=== PATIENT | male | born 1945 | race Caucasian/White ===

== ENCOUNTER 2017-06-14 00:17 | Observation (INO) | payer OTHER ==
[~2017-06-14] VITALS: Ht 175.3 cm; Wt 77.7 kg
[~2017-06-14 00:17] MED LIST: CLIN1GEL54 TOP; KETO2SHA5 EXT; MULTTAB58 PO
--- NOTE | 2017-06-14 00:43 | EMERGENCY ROOM VISIT NOTE ---
History Report prepared by Kareen: Mati Crawford Under the Supervision of: Cedric WhiteO. First contact with patient: 00:25 Chief Complaint: CHEST PAIN Stated Complaint: CHEST PAIN,PAIN UPPER LFT SIDE AND DOWN BACK History of Present Illness The patient is a 72 year old male who presents to the Emergency Room with complaints of constant chest pain beginning an hour ago. The patient states that he believes that he has heart burn because he is currently feeling better. He notes that his pain woke him up an hour and a half ago and radiated up through his shoulder and down into his arm. The patient states that his pain does not worsen when he moves his arm. He also complains of lightheadedness and left-sided neck pain. He notes that he drank water which provided relief of his chest pain. He reports that his shoulder pain and arm pain remains. The patient states that he had a stress test done over 5 years ago. He notes that he had some grilled peppers and onions tonight for dinner, but reports that these foods have not caused him chest pain in the past. The patient states that he drinks coffee every day. He notes that he occasionally feels chest pain when he eats. He reports that he has a family history of cancer but does not have a family history of heart problems. Pt denies headache, change in vision, LOC, diaphoresis, fevers, shortness of breath, nausea, vomiting, diarrhea, pain with urination, lower extremity swelling, and melena. Patient denies any history of GERD. Source of History: patient Onset: an hour ago Position: chest Timing: constant Associated Symptoms: + neck pain (left-sided), No LOC, No headache, No diaphoresis, No SOB, No nausea, No vomiting, No melena, No diarrhea, No urinary symptoms Note: The patient states that his chest pain radiates up to his shoulder and down his arm. He also complains of lightheadedness. He denies any change in vision and lower extremity swelling. Review of Systems See HPI for pertinent positives & negatives. A total of 10 systems reviewed and were otherwise negative. Past Medical & Surgical Medical Problems: (1) Ankle fracture (2) GERD (gastroesophageal reflux disease) Surgical Problems: (1) History of cholecystectomy (2) History of herniorrhaphy (3) History of tonsillectomy and adenoidectomy Family History Cancer Gallbladder disease Hypertension Social History Smoking Status: Former Smoker Marital Status: Housing Status: lives with family Occupation Status: employed Current/Historical Medications Scheduled Multiple Vitamin (Multivitamin), 1 TAB PO DAILY Pantoprazole (Protonix), 1 TAB PO DAILY Allergies Coded Allergies: Penicillins (Unverified Allergy, Unknown, as a child, [id number], [facility]) Sulfamethoxazole w/Trimethoprim (Verified Allergy, Unknown, face breaks outin boils, 03/10/16) Tetracycline (Unverified Allergy, Unknown, RASH, 03/10/16) Oxycodone (Verified Adverse Reaction, Unknown, n/v, 03/10/16) Uncoded Allergies: dairy (Adverse Reaction, Unknown, migraines, 12/14/13) perfumes (Adverse Reaction, Unknown, migraines, 12/14/13) Physical Exam Vital Signs Date Time Temp Pulse Resp B/P (MAP) Pulse Ox O2 Delivery O2 Flow Rate FiO2 06/14/17 06:14 74 20 134/93 98 Room Air 06/14/17 05:27 66 115/77 72 142/80 73 134/93 06/14/17 05:13 95 Room Air 06/14/17 05:02 70 06/14/17 04:53 78 20 131/83 98 Room Air 06/14/17 03:23 76 20 131/89 98 Room Air 06/14/17 02:48 73 21 139/87 98 Room Air 06/14/17 01:48 66 20 118/83 97 Room Air 06/14/17 01:04 65 20 115/74 97 Room Air 06/14/17 00:40 68 06/14/17 00:30 94 Room Air 06/14/17 00:19 36.6 74 18 133/90 94 Room Air Physical Exam GENERAL: alert, well appearing, well nourished, no distress, non-toxic EYE EXAM: normal conjunctiva, PERRL and EOM's grossly intact OROPHARYNX: no exudate, no erythema, lips, buccal mucosa, and tongue normal and mucous membranes are moist NECK: supple, no nuchal rigidity, no adenopathy, non-tender LUNGS: Clear to auscultation. Normal chest wall mechanics, no wheezes/rhonchi/ rales HEART: no murmurs, S1 normal and S2 normal ABDOMEN: abdomen soft, non-tender, normo-active bowel sounds, no masses, no rebound or guarding. BACK: Back is symmetrical on inspection and there is no deformity, no midline tenderness, no CVA tenderness. CHEST: No reproducible pain to palpation of chest wall. SKIN: no rashes and no bruising UPPER EXTREMITIES: upper extremities are grossly normal. Normal pulses and full range of motion. LOWER EXTREMITIES: No pitting edema. Normal pulses and full range of motion. NEURO EXAM: Normal sensorium, cranial nerves II-XII grossly intact, normal speech, no gross weakness of arms, no gross weakness of legs. Medical Decision & Procedures ER Provider Diagnostic Interpretation: Radiology results have been interpreted by the radiologist and reviewed by me. CTA CHEST: No consolidation or pleural effusion. No pulmonary embolism. Normal heart size without pericardial effusion. Radiologist: Yissel Serrato M.D. CHEST X-RAY: No cardiomegaly. No effusion. No wide mediastinum. No focal infiltrate. Laboratory Results 06/14/17 00:50 Red Blood Count 4.75, Mean Corpuscular Volume 94.9, Mean Corpuscular Hemoglobin 30.7, Mean Corpuscular Hemoglobin Concent 32.4, Mean Platelet Volume 9.7, Neutrophils (%) (Auto) 47.9, Lymphocytes (%) (Auto) 40.6, Monocytes (%) (Auto) 8.0, Eosinophils (%) (Auto) 3.0, Basophils (%) (Auto) 0.2, Neutrophils # (Auto) 2.74, Lymphocytes # (Auto) 2.32, Monocytes # (Auto) 0.46, Eosinophils # (Auto) 0.17, Basophils # (Auto) 0.01 06/14/17 00:50 Test 06/14/17 00:50 06/14/17 04:38 White Blood Count 5.72 K/uL (4.8-10.8) Red Blood Count 4.75 M/uL (4.7-6.1) Hemoglobin 14.6 g/dL (14.0-18.0) Hematocrit 45.1 % (42-52) Mean Corpuscular Volume 94.9 fL (80-100) Mean Corpuscular Hemoglobin 30.7 pg (25-34) Mean Corpuscular Hemoglobin Concent 32.4 g/dl (32-36) Platelet Count 283 K/uL (130-400) Mean Platelet Volume 9.7 fL (7.4-10.4) Neutrophils (%) (Auto) 47.9 % Lymphocytes (%) (Auto) 40.6 % Monocytes (%) (Auto) 8.0 % Eosinophils (%) (Auto) 3.0 % Basophils (%) (Auto) 0.2 % Neutrophils # (Auto) 2.74 K/uL (1.4-6.5) Lymphocytes # (Auto) 2.32 K/uL (1.2-3.4) Monocytes # (Auto) 0.46 K/uL (0.11-0.59) Eosinophils # (Auto) 0.17 K/uL (0-0.5) Basophils # (Auto) 0.01 K/uL (0-0.2) RDW Standard Deviation 44.9 fL (36.4-46.3) RDW Coefficient of Variation 13.0 % (11.5-14.5) Immature Granulocyte % (Auto) 0.3 % Immature Granulocyte # (Auto) 0.02 K/uL (0.00-0.02) Prothrombin Time 11.4 SECONDS (9.0-12.0) Prothromb Time International Ratio 1.1 (0.9-1.1) D-Dimer 190 ug/L FEU (0-500) Anion Gap 5.0 mmol/L (3-11) Est Creatinine Clear Calc Drug Dose 77.4 ml/min Estimated GFR () 101.5 Estimated GFR (Non- 87.6 BUN/Creatinine Ratio 15.2 (10-20) Calcium Level 8.4 mg/dl (8.5-10.1) Magnesium Level 2.2 mg/dl (1.8-2.4) Total Bilirubin 0.5 mg/dl (0.2-1) Aspartate Amino Transf (AST/SGOT) 11 U/L (15-37) Alanine Aminotransferase (ALT/SGPT) 19 U/L (12-78) Alkaline Phosphatase 57 U/L (45-117) Total Protein 6.2 gm/dl (6.4-8.2) Albumin 3.7 gm/dl (3.4-5.0) Globulin 2.5 gm/dl (2.5-4.0) Albumin/Globulin Ratio 1.5 (0.9-2) Troponin I < 0.015 ng/ml (0-0.045) Triglycerides Level 45 mg/dl (0-150) Cholesterol Level 164 mg/dl (0-200) HDL Cholesterol 58 mg/dl LDL Cholesterol, Calculated 97 mg/dl VLDL Cholesterol, Calculated 9 mg/dl Cholesterol/HDL Ratio 2.8 Laboratory results per my review. Medications Administered Medications (Trade) Dose Ordered Sig/Ellen Route Start Time Stop Time Status Last Admin Dose Admin Famotidine (Pepcid 20mg Iv Push) 20 mg ONE STAT IV 06/14/17 00:44 06/14/17 00:47 DC 06/14/17 01:02 20 MG Al Hydroxide/Mg Hydroxide (Maalox Susp) 15 ml NOW STAT PO 06/14/17 00:44 06/14/17 00:47 DC 06/14/17 01:02 15 ML Aspirin (Ecotrin Tab) 325 mg NOW STAT PO 06/14/17 05:56 06/14/17 05:57 DC 06/14/17 06:26 325 MG ECG Per My Interpretation Indication: chest pain Rate (beats per minute): 70 Rhythm: sinus rhythm Findings: no acute ischemic change, no ectopy, other (Left axis, normal intervals) Change: EKG #2: Sinus 65. Left Jemison. Normal intervals. No acute ischemic change. ED Course 0027: The patient was evaluated in room B2. A complete history and physical exam was performed. 0044: Maalox Susp 15ml PO, Famotidine 20mg IV 0217: I reevaluated and updated the patient. He feels better. I updated him on his lab results so far. The patient will get a repeat trop. 0250: The patient had another episode of chest pain that radiated a little toward his back. He rates his current pain as a /10. 0430: I rechecked the patient. He has no current chest pain and is waiting on a repeat trop. 0552: I reevaluated and updated the patient. He is still in pain. 0556: Aspirin 325mg PO 0600: Upon reevaluation, the patient is stable. I discussed the findings and the treatment plan with the patient. He expresses agreement and understanding. I spoke with Dr. Nicholson of the [facility]. The patient will be evaluated for further management. 0615: I rechecked the patient again. He is willing to be admitted. Medical Decision Differential diagnosis: Etiologies such as cardiac ischemia, aortic dissection, pulmonary embolism, pneumonia, pneumothorax, musculoskeletal, infections, pericarditis, myocarditis , esophageal rupture, gastrointestinal, as well as others were entertained. Heart score 3 Patient well-appearing here and symptoms had resolved prior to my interview and evaluation at bedside. Patient low risk for ACS, and initial labs and imaging unremarkable. Patient had repeat episode of pain in the back, was sent for CTA chest as a precaution, this was also reassuring. Patient was able to ambulate without any recurrent pain and no hypoxia. Patient then had a repeat episode of chest pain in the left arm, and I discussed with him admission for additional evaluation and trending of troponins despite 2 negative troponins in the emergency room. I do not suspect dissection or other vascular etiology, no evidence of PE, infectious etiology, pericardial effusion. Patient was stable vital signs here, doubt hypertensive urgency/emergency. Discussed with them possible GERD or musculoskeletal component, however given age and no prior history of recent cardiac evaluation, additional evaluation and possible cardiology evaluation. Patient verbalized understanding and after several bedside discussions was agreeable with plan. Medication Reconcilliation Current Medication List: was personally reviewed by me Blood Pressure Screening Patient's blood pressure: Elevated blood pressure Blood pressure disposition: Elevated BP felt to be situational Consults Time Called: 0557 Consulting Physician: Dr. Nicholson - Jordan Simon Returned Call: 0600 I reviewed the patient's case with Jordan Elam. He will evaluate the patient for further management. Impression Primary Impression: Chest pain Additional Impression: Light-headed feeling Scribe Attestation The scribe's documentation has been prepared under my direction and personally reviewed by me in its entirety. I confirm that the note above accurately reflects all work, treatment, procedures, and medical decision making performed by me. Departure Information Dispostion Being Evaluated By Hospitalist Prescriptions Pantoprazole (PROTONIX) 40 Mg Tab 1 TAB PO DAILY for 30 Days, #30 TAB 0 Refills Prov: David Mojica M.D. 06/14/17 Referrals Bridger Luna M.D. (PCP) Patient Instructions My [facility] Problem Qualifiers Primary Impression: Chest pain Chest pain type: unspecified Qualified Codes: R07.9 - Chest pain, unspecified
[2017-06-14] MEDS ORDERED: ALUMINUM/MAGNESIUM SUSP 30 ML UDC PO STA (00:44)
[2017-06-14] MEDS ORDERED: FAMOTIDINE 20MG/5ML IV PUSH IV STA (00:44)
[2017-06-14 01:02] LABS: BASO % 0.2 %; BASO ABS # 0.01 K/uL (0-0.2); EOS ABS # 0.17 K/uL (0-0.5); HEMATOCRIT 45.1 % (42-52); HEMOGLOBIN 14.6 g/dL (14.0-18.0); IG# 0.02 K/uL (0.00-0.02); LYMPH % 40.6 %; LYMPH ABS # 2.32 K/uL (1.2-3.4); MEAN CELL VOLUME 94.9 fL (80-100); MEAN CORPUSCULAR HEMOGLOBIN 30.7 pg (25-34); MEAN CORPUSCULAR HGB CONC 32.4 g/dl (32-36); MEAN PLATELET VOLUME 9.7 fL (7.4-10.4); MONO ABS # 0.46 K/uL (0.11-0.59); NEUT % 47.9 %; NEUT ABS # 2.74 K/uL (1.4-6.5); PLATELET COUNT 283 K/uL (130-400); RED CELL DISTRIBUTION WIDTH SD 44.9 fL (36.4-46.3); WHITE BLOOD COUNT 5.72 K/uL (4.8-10.8)
[2017-06-14 01:13] LABS: INR 1.1 (0.9-1.1)
[2017-06-14 01:19] LABS: ALBUMIN 3.7 gm/dl (3.4-5.0); ALT/SGPT 19 U/L (12-78); AST/SGOT 11 U/L (15-37); BLOOD UREA NITROGEN 12 mg/dl (7-18); CALCIUM 8.4 mg/dl (8.5-10.1); CARBON DIOXIDE 26 mmol/L (21-32); CREATININE 0.81 mg/dl (0.60-1.40); GLUCOSE 96 mg/dl (70-99); POTASSIUM 3.9 mmol/L (3.5-5.1); SODIUM 140 mmol/L (136-145)
[2017-06-14 01:24] LABS: ALKALINE PHOSPHATASE 57 U/L (45-117); TOTAL PROTEIN 6.2 gm/dl (6.4-8.2)
[2017-06-14] MEDS ORDERED: OPTIRAY 320 IV PRN (03:15)
[2017-06-14] MEDS ORDERED: ASPIRIN 325 MG ECTAB PO STA (05:56)
--- NOTE | 2017-06-14 06:36 | DIAGNOSTIC IMAGING REPORT ---
(CHEST FOR PE) ANGIO WITH CT DOSE: 423.33 mGy.cm HISTORY: Chest pain dyspnea TECHNIQUE: Multiaxial CT images of the chest were performed following the intravenous administration of contrast to evaluate the pulmonary arteries. Maximal intensity projection images were also obtained. A dose lowering technique was utilized adhering to the principles of ALARA. COMPARISON STUDY: None. FINDINGS: There is a normal caliber thoracic aorta with no evidence for dissection. There is no evidence for pulmonary embolus. No pleural effusions. No pneumothorax. The liver and spleen are unremarkable. No mediastinal or hilar lymphadenopathy. The central airways are patent. The lungs are clear. IMPRESSION: No evidence for pulmonary embolus. The above report was generated using voice recognition software. It may contain grammatical, syntax or spelling errors. Electronically signed by: Harman Diaz M.D. 06/14/2017 6:35 AM Dictated Date/Time: 06/14/2017 6:33 AM
[2017-06-14] MEDS ORDERED: ONDANSETRON INJ 2 MG/ML 2 ML VIAL IV PRN (07:00)
[2017-06-14] MEDS ORDERED: ACETAMINOPHEN 325 MG TAB PO PRN (07:00)
[2017-06-14] MEDS ORDERED: POLYETHYLENE (MIRALAX) 17 GM PACK PO PRN (07:00)
--- NOTE | 2017-06-14 07:18 | History and Physical ---
History & Physical Date & Time of Service: Jun 14, 2017 at 07:00 Chief Complaint: Chest Pain,Pain Upper Lft Side And Down Back Primary Care Physician: Bridger Luna M.D. History of Present Illness Source: patient, family Patient is a 72 yo male who presents to the hospital for evaluation of chest discomfort that woke him from sleep last night. The patient states he woke up with pain in the back of his left shoulder/neck, and chest discomfort. He then states the pain began radiating down his left arm and into his left neck, and thus came to the ER. He reports associated lightheadedness/dizziness but denies any SOB, nausea, or palpitations. He reports difficulty explaining the pain, and states he was not sure if it was from his vertebrae, heartburn, or cardiac. He reports having slight improvement with drinking water. He also mentions having some tenderness to palpation on the left chest wall between ribs. He had improvement of symptoms initially in the ER, but then began having a recurrence of the discomfort in his chest and shoulder. Past Medical/Surgical History Medical Problems: (1) GERD (gastroesophageal reflux disease) Status: Chronic Surgical Problems: (1) History of cholecystectomy Status: Resolved (2) History of herniorrhaphy Status: Resolved (3) History of tonsillectomy and adenoidectomy Status: Resolved Family History Cancer Gallbladder disease Hypertension Social History Smoking Status: Former Smoker Marital Status: Housing status: lives with family Occupational Status: employed Multi-Drug Resistant Organisms History of MDRO: No Allergies Coded Allergies: Penicillins (Unverified Allergy, Unknown, as a child, Dr Jeni REED with [facility] [id number] adm, 03/10/16) Sulfamethoxazole w/Trimethoprim (Verified Allergy, Unknown, face breaks outin boils, 03/10/16) Tetracycline (Unverified Allergy, Unknown, RASH, 03/10/16) Oxycodone (Verified Adverse Reaction, Unknown, n/v, 03/10/16) Uncoded Allergies: dairy (Adverse Reaction, Unknown, migraines, 12/14/13) perfumes (Adverse Reaction, Unknown, migraines, 12/14/13) Home Medications Scheduled Multiple Vitamin (Multivitamin), 1 TAB PO DAILY Review of Systems Constitutional: No fever, No chills, No sweats, No weight loss, No weakness Eyes: No eye pain, No redness, No diplopia ENT: No nasal symptoms, No sore throat, No trouble swallowing Respiratory: No cough, No sputum, No wheezing, No shortness of breath Cardiovascular: + chest pain, No edema, No claudication, No palpitations Abdomen: No pain, No nausea, No vomiting, No diarrhea, No constipation Musculoskeletal: No joint pain, No muscle pain, No swelling Genitourinary - Male: No hematuria, No dysuria, No urinary frequency, No urinary urgency Neurologic: No paralysis, No weakness, No vertigo, No balance problems Psychiatric: No depression symptoms, No anxiety, No insomnia Endocrine: No fatigue, No excessive thirst, No excessive urination Hematologic / Lymphatic: No abnormal bleeding/bruising, No clotting problems, No swollen lymph nodes Integumentary: No rash, No itch, No new/changing skin lesions Physical Exam Vital Signs Date Time Temp Pulse Resp B/P (MAP) Pulse Ox O2 Delivery O2 Flow Rate FiO2 06/14/17 06:14 74 20 134/93 98 Room Air 06/14/17 05:27 66 115/77 72 142/80 73 134/93 06/14/17 05:13 95 Room Air 06/14/17 05:02 70 06/14/17 04:53 78 20 131/83 98 Room Air 06/14/17 03:23 76 20 131/89 98 Room Air 06/14/17 02:48 73 21 139/87 98 Room Air 06/14/17 01:48 66 20 118/83 97 Room Air 06/14/17 01:04 65 20 115/74 97 Room Air 06/14/17 00:40 68 06/14/17 00:30 94 Room Air 06/14/17 00:19 36.6 74 18 133/90 94 Room Air General Appearance: WD/WN, no apparent distress Head: normocephalic, atraumatic Eyes: PERRL, EOMI, sclerae normal ENT: hearing grossly normal Neck: supple, no adenopathy, no JVD, no carotid bruits, trachea midline Respiratory/Chest: chest non-tender, lungs clear, normal breath sounds, no respiratory distress, no accessory muscle use Cardiovascular: regular rate, rhythm, no edema, no gallop, no JVD, no murmur Abdomen/GI: normal bowel sounds, non tender, soft, no organomegaly Back: no CVA tenderness, + paravertebral tenderness (lumbar spine) Extremities/Musculoskelatal: no calf tenderness, normal capillary refill, no pedal edema Neurologic/Psych: no motor/sensory deficits, alert, normal mood/affect, oriented x 3 Skin: normal color, warm/dry, no rash Diagnostics Laboratory Results Results Past 24 Hours Test 06/14/17 00:50 06/14/17 04:38 06/14/17 06:53 Range/Units White Blood Count 5.72 4.8-10.8 K/uL Red Blood Count 4.75 4.7-6.1 M/uL Hemoglobin 14.6 14.0-18.0 g/dL Hematocrit 45.1 42-52 % Mean Corpuscular Volume 94.9 80-100 fL Mean Corpuscular Hemoglobin 30.7 25-34 pg Mean Corpuscular Hemoglobin Concent 32.4 32-36 g/dl Platelet Count 283 130-400 K/uL Mean Platelet Volume 9.7 7.4-10.4 fL Neutrophils (%) (Auto) 47.9 % Lymphocytes (%) (Auto) 40.6 % Monocytes (%) (Auto) 8.0 % Eosinophils (%) (Auto) 3.0 % Basophils (%) (Auto) 0.2 % Neutrophils # (Auto) 2.74 1.4-6.5 K/uL Lymphocytes # (Auto) 2.32 1.2-3.4 K/uL Monocytes # (Auto) 0.46 0.11-0.59 K/uL Eosinophils # (Auto) 0.17 0-0.5 K/uL Basophils # (Auto) 0.01 0-0.2 K/uL RDW Standard Deviation 44.9 36.4-46.3 fL RDW Coefficient of Variation 13.0 11.5-14.5 % Immature Granulocyte % (Auto) 0.3 % Immature Granulocyte # (Auto) 0.02 0.00-0.02 K/uL Prothrombin Time 11.4 9.0-12.0 SECONDS Prothromb Time International Ratio 1.1 0.9-1.1 D-Dimer 190 0-500 ug/L FEU Sodium Level 140 136-145 mmol/L Potassium Level 3.9 3.5-5.1 mmol/L Chloride Level 109 98-107 mmol/L Carbon Dioxide Level 26 21-32 mmol/L Anion Gap 5.0 3-11 mmol/L Blood Urea Nitrogen 12 7-18 mg/dl Creatinine 0.81 0.60-1.40 mg/dl Est Creatinine Clear Calc Drug Dose 77.4 ml/min Estimated GFR () 101.5 Estimated GFR (Non- 87.6 BUN/Creatinine Ratio 15.2 10-20 Random Glucose 96 70-99 mg/dl Calcium Level 8.4 8.5-10.1 mg/dl Magnesium Level 2.2 1.8-2.4 mg/dl Total Bilirubin 0.5 0.2-1 mg/dl Aspartate Amino Transf (AST/SGOT) 11 15-37 U/L Alanine Aminotransferase (ALT/SGPT) 19 12-78 U/L Alkaline Phosphatase 57 45-117 U/L Troponin I < 0.015 < 0.015 0-0.045 ng/ml Total Protein 6.2 6.4-8.2 gm/dl Albumin 3.7 3.4-5.0 gm/dl Globulin 2.5 2.5-4.0 gm/dl Albumin/Globulin Ratio 1.5 0.9-2 Impression Assessment and Plan CHEST PAIN: -admit to rule out ACS -negative troponins x2, 3rd troponin ordered -CTA chest negative for PE or dissection -EKG NSR -Consult Cardiology, have paged to discuss the patient, will place an order for a stress echo for now and can be cancelled or modified as needed -patient does not have a history of GERD but reports heartburn symptoms more recently. -check lipid panel -low dose ASA given CHRONIC LOW BACK PAIN: -was told he problem is not amenable to surgery -takes PRN ibuprofen or tylenol on occasion -was given PT without much effect Level of Care Telemetry Resuscitation Status FULL RESUSCITATION VTE Prophylaxis VTE Risk Assessment Done? Y/N: Yes Risk Level: Moderate Given or contraindicated: Enoxaparin (Lovenox)SQ
--- NOTE | 2017-06-14 07:33 | DIAGNOSTIC IMAGING REPORT ---
SINGLE VIEW CHEST CLINICAL HISTORY: Atypical chest pain. FINDINGS: An AP, portable, upright chest radiograph is compared to study dated 03/29/2009. The examination is degraded by portable technique and patient rotation. The heart is enlarged and there is atherosclerotic calcification of the thoracic aorta. The pulmonary vasculature is noncongested. Chronic interstitial thickening is similar to previous. There is bibasilar atelectasis. The lungs and pleural spaces are otherwise clear. No pneumothorax is seen. The skeletal structures are osteopenic. The bony thorax is grossly intact. IMPRESSION: Cardiomegaly with no acute cardiopulmonary abnormality. Electronically signed by: Kushal Fernandes M.D. 06/14/2017 7:32 AM Dictated Date/Time: 06/14/2017 7:31 AM
[2017-06-14 07:53] VITALS: BP 138/88; PULSE 73; TEMP 36.9; O2SAT 97; Ht 175.3 cm; Wt 77.7 kg
[2017-06-14] MEDS ORDERED: IV FLUIDS COMPLETED PRN (08:15)
[2017-06-14] MEDS ORDERED: ENOXAPARIN 30 MG/0.3 ML SYR SC SCH (09:00)
--- NOTE | 2017-06-14 10:48 | Progress Note ---
Progress Note Date of Service Jun 14, 2017. Progress Note Stress echocardiogram: nonischemic. ok to d/c to home from cardiac standpoint.
--- NOTE | 2017-06-14 11:22 | CARDIOLOGY CONSULTATION ---
DATE OF CONSULTATION: 06/14/2017 INPATIENT CONSULTATION CONSULTATION REQUESTED BY: Dr. Nicholson. REASON FOR CONSULTATION: Chest pain. HISTORY OF PRESENT ILLNESS: Mr. Dillon is a very pleasant 72-year-old gentleman who presented to Emergency Department early in the a.m. of 06/14/2017 with a complaint of chest pain. The patient states he went to bed last night in his normal state of health, but then woke up in the middle the night with pain in the back of his left shoulder that seemed to radiate up into his chest. He described it as a muscle ache sensation that was dull and achy with moments of sharp and stabbing pain. He denied any associated shortness of breath, diaphoresis, nausea, palpitations, lightheadedness, dizziness, or syncope. He states that the pain resolved while he was in the waiting room the Emergency Department. In the ER, his initial evaluation was unremarkable and he was admitted to telemetry. Otherwise, he states the pain continues to wax and wane. He does note that he does carry 40 pounds of coal in a bucket every day to heat his house. He also had a meal of onions and peppers yesterday afternoon. PAST SURGICAL HISTORY: 1. Tonsillectomy. 2. Hernia repair. 3. Laparoscopic cholecystectomy. 4. Colonoscopy. MEDICAL ILLNESSES: 1. GERD. 2. Migraines. 3. Benign prostatic hypertrophy. 4. Benign neoplasm of the colon. FAMILY HISTORY: Noncontributory. SOCIAL HISTORY: The patient is a former smoker, quit 16 years ago. Denies any alcohol or recreational drug use. He is and lives at home with his . He is currently employed as a water treatment plant. REVIEW OF SYSTEMS: As per HPI, all other review of systems reviewed and negative at this time. ALLERGIES: 1. PENICILLINS. 2. BACTRIM. 3. TETRACYCLINE. 4. OXYCODONE. MEDICATIONS AN OUTPATIENT: Denies. PHYSICAL EXAMINATION: VITALS: Temperature 36.9, pulse 73, respiratory rate 12, blood pressure 138/88. GENERAL: Awake, alert, oriented x3 in no acute distress. HEENT: Normocephalic, atraumatic. Pupils equal, round and react to light and accommodation. Extraocular muscles intact. Anicteric sclerae. Moist mucous membranes. NECK: No JVD, no bruit. CARDIOVASCULAR: Regular. Positive S4. Normal S1 and S2. No S3. No murmurs or rubs. PULMONARY: Clear to auscultation bilaterally. No rales, rhonchi, or wheezing. ABDOMEN: Bowel sounds x4, soft. No rebound, guarding, tenderness. No organomegaly. EXTREMITIES: No clubbing, cyanosis or edema. +2 pedal pulses bilaterally. SKIN: Warm and dry. TEST RESULTS: A 12-lead EKG performed in the Emergency Department independently reviewed at this time shows normal sinus rhythm with left axis deviation. No signs of active ischemia. LABORATORY STUDIES OF SIGNIFICANCE: Troponin negative x2. Exercise stress echocardiogram was nonischemic, no arrhythmias, normal heart rate and blood pressure response to exercise, above average exercise tolerance. IMPRESSION: Chest pain, noncardiac. RECOMMENDATIONS: It was my pleasure to see Mr. Dillon in consultation today. The patient was counseled given the fact that his ischemic workup is negative, I do not see any cardiac component to his chest pain and believe it is most likely either a musculoskeletal or acid reflux or possibly a combination of the two. So it is okay to discharge the patient to home from a cardiac standpoint, I recommend followup with his primary care physician. No medications will be added.
[2017-06-14 12:39] VITALS: BP 145/75; PULSE 76; TEMP 36.7; O2SAT 98
--- NOTE | 2017-06-14 13:40 | Progress Note ---
Internal Med Progress Note Date of Service: Jun 14, 2017. Provider Documentation: SUBJECTIVE: Patient performed well after stress test. Denies chest pain or shortness of breath OBJECTIVE: General Appearance: no apparent distress Head: normocephalic, atraumatic Eyes: EOMI, sclerae normal ENT: hearing grossly normal Neck: supple, no adenopathy, no JVD, no carotid bruits, trachea midline Respiratory/Chest: chest non-tender, lungs clear, normal breath sounds, no respiratory distress, no accessory muscle use Cardiovascular: regular rate, rhythm, no edema Abdomen/GI: normal bowel sounds, non tender, soft, no organomegaly Extremities/Musculoskelatal: nontender Neurologic/Psych: no motor/sensory deficits, alert, normal mood/affect, oriented x 3 Skin: normal color, warm/dry, no rash ASSESSMENT & PLAN: CTA: No evidence for pulmonary embolus Patient was evaluated by cardiology Exercise stress echocardiogram was nonischemic, no arrhythmias, normal heart rate and blood pressure response to exercise, above average exercise tolerance. IMPRESSION: Chest pain, noncardiac. Patient may have been experience musculoskeletal pain or gastric reflux Patient to be discharged with prescription for pantoprazole if having gastric reflux Patient to be discharged with follow up to Dr. Luna [address] [facility], [place] [address] Vital Signs: Date Time Temp Pulse Resp B/P (MAP) Pulse Ox O2 Delivery O2 Flow Rate FiO2 06/14/17 12:39 36.7 76 18 145/75 (98) 98 Room Air 06/14/17 12:00 Room Air 06/14/17 07:53 36.9 73 18 138/88 97 Room Air 06/14/17 07:21 78 16 125/85 97 Room Air 06/14/17 06:14 74 20 134/93 98 Room Air 06/14/17 05:27 66 115/77 72 142/80 73 134/93 06/14/17 05:13 95 Room Air 06/14/17 05:02 70 06/14/17 04:53 78 20 131/83 98 Room Air 06/14/17 03:23 76 20 131/89 98 Room Air 06/14/17 02:48 73 21 139/87 98 Room Air 06/14/17 01:48 66 20 118/83 97 Room Air 06/14/17 01:04 65 20 115/74 97 Room Air 06/14/17 00:40 68 06/14/17 00:30 94 Room Air 06/14/17 00:19 36.6 74 18 133/90 94 Room Air Lab Results: Results Past 24 Hours Test 06/14/17 00:50 06/14/17 04:38 06/14/17 12:53 Range/Units White Blood Count 5.72 4.8-10.8 K/uL Red Blood Count 4.75 4.7-6.1 M/uL Hemoglobin 14.6 14.0-18.0 g/dL Hematocrit 45.1 42-52 % Mean Corpuscular Volume 94.9 80-100 fL Mean Corpuscular Hemoglobin 30.7 25-34 pg Mean Corpuscular Hemoglobin Concent 32.4 32-36 g/dl Platelet Count 283 130-400 K/uL Mean Platelet Volume 9.7 7.4-10.4 fL Neutrophils (%) (Auto) 47.9 % Lymphocytes (%) (Auto) 40.6 % Monocytes (%) (Auto) 8.0 % Eosinophils (%) (Auto) 3.0 % Basophils (%) (Auto) 0.2 % Neutrophils # (Auto) 2.74 1.4-6.5 K/uL Lymphocytes # (Auto) 2.32 1.2-3.4 K/uL Monocytes # (Auto) 0.46 0.11-0.59 K/uL Eosinophils # (Auto) 0.17 0-0.5 K/uL Basophils # (Auto) 0.01 0-0.2 K/uL RDW Standard Deviation 44.9 36.4-46.3 fL RDW Coefficient of Variation 13.0 11.5-14.5 % Immature Granulocyte % (Auto) 0.3 % Immature Granulocyte # (Auto) 0.02 0.00-0.02 K/uL Prothrombin Time 11.4 9.0-12.0 SECONDS Prothromb Time International Ratio 1.1 0.9-1.1 D-Dimer 190 0-500 ug/L FEU Sodium Level 140 136-145 mmol/L Potassium Level 3.9 3.5-5.1 mmol/L Chloride Level 109 98-107 mmol/L Carbon Dioxide Level 26 21-32 mmol/L Anion Gap 5.0 3-11 mmol/L Blood Urea Nitrogen 12 7-18 mg/dl Creatinine 0.81 0.60-1.40 mg/dl Est Creatinine Clear Calc Drug Dose 77.4 ml/min Estimated GFR () 101.5 Estimated GFR (Non- 87.6 BUN/Creatinine Ratio 15.2 10-20 Random Glucose 96 70-99 mg/dl Calcium Level 8.4 8.5-10.1 mg/dl Magnesium Level 2.2 1.8-2.4 mg/dl Total Bilirubin 0.5 0.2-1 mg/dl Aspartate Amino Transf (AST/SGOT) 11 15-37 U/L Alanine Aminotransferase (ALT/SGPT) 19 12-78 U/L Alkaline Phosphatase 57 45-117 U/L Troponin I < 0.015 < 0.015 0-0.045 ng/ml Total Protein 6.2 6.4-8.2 gm/dl Albumin 3.7 3.4-5.0 gm/dl Globulin 2.5 2.5-4.0 gm/dl Albumin/Globulin Ratio 1.5 0.9-2 Triglycerides Level 45 0-150 mg/dl Cholesterol Level 164 0-200 mg/dl HDL Cholesterol 58 mg/dl LDL Cholesterol, Calculated 97 mg/dl VLDL Cholesterol, Calculated 9 mg/dl Cholesterol/HDL Ratio 2.8
[2017-06-14] MEDS ORDERED: PANT1TAB3 PO (13:44)
--- NOTE | 2017-06-14 13:47 | Discharge Instructions ---
Discharge Instructions Date of Service Jun 14, 2017. Admission Reason for Admission: Chest Pain Discharge Discharge Diagnosis / Problem: non cardiac chest pain Discharge Goals Goal(s): Improve function Activity Recommendations Activity Limitations: per Instructions/Follow-up section Shower/Bathe: no limitations . Instructions / Follow-Up Instructions / Follow-Up CTA: No evidence for pulmonary embolus Patient was evaluated by cardiology Exercise stress echocardiogram was nonischemic, no arrhythmias, normal heart rate and blood pressure response to exercise, above average exercise tolerance. IMPRESSION: Chest pain, noncardiac. Patient may have been experience musculoskeletal pain or gastric reflux Patient to be discharged with prescription for pantoprazole if having gastric reflux Patient to be discharged with follow up to Dr. Luna [address] [facility], [place] [address] Current Hospital Diet Patient's current hospital diet: AHA Diet (Heart Healthy) Discharge Diet Recommended Diet: AHA Diet (Heart Healthy) Pending Studies Studies pending at discharge: no Laboratory Results 06/14/17 00:50 Red Blood Count 4.75, Mean Corpuscular Volume 94.9, Mean Corpuscular Hemoglobin 30.7, Mean Corpuscular Hemoglobin Concent 32.4, Mean Platelet Volume 9.7, Neutrophils (%) (Auto) 47.9, Lymphocytes (%) (Auto) 40.6, Monocytes (%) (Auto) 8.0, Eosinophils (%) (Auto) 3.0, Basophils (%) (Auto) 0.2, Neutrophils # (Auto) 2.74, Lymphocytes # (Auto) 2.32, Monocytes # (Auto) 0.46, Eosinophils # (Auto) 0.17, Basophils # (Auto) 0.01 06/14/17 00:50 Test 06/14/17 00:50 06/14/17 04:38 06/14/17 12:53 White Blood Count 5.72 K/uL (4.8-10.8) Red Blood Count 4.75 M/uL (4.7-6.1) Hemoglobin 14.6 g/dL (14.0-18.0) Hematocrit 45.1 % (42-52) Mean Corpuscular Volume 94.9 fL (80-100) Mean Corpuscular Hemoglobin 30.7 pg (25-34) Mean Corpuscular Hemoglobin Concent 32.4 g/dl (32-36) Platelet Count 283 K/uL (130-400) Mean Platelet Volume 9.7 fL (7.4-10.4) Neutrophils (%) (Auto) 47.9 % Lymphocytes (%) (Auto) 40.6 % Monocytes (%) (Auto) 8.0 % Eosinophils (%) (Auto) 3.0 % Basophils (%) (Auto) 0.2 % Neutrophils # (Auto) 2.74 K/uL (1.4-6.5) Lymphocytes # (Auto) 2.32 K/uL (1.2-3.4) Monocytes # (Auto) 0.46 K/uL (0.11-0.59) Eosinophils # (Auto) 0.17 K/uL (0-0.5) Basophils # (Auto) 0.01 K/uL (0-0.2) RDW Standard Deviation 44.9 fL (36.4-46.3) RDW Coefficient of Variation 13.0 % (11.5-14.5) Immature Granulocyte % (Auto) 0.3 % Immature Granulocyte # (Auto) 0.02 K/uL (0.00-0.02) Prothrombin Time 11.4 SECONDS (9.0-12.0) Prothromb Time International Ratio 1.1 (0.9-1.1) D-Dimer 190 ug/L FEU (0-500) Anion Gap 5.0 mmol/L (3-11) Est Creatinine Clear Calc Drug Dose 77.4 ml/min Estimated GFR () 101.5 Estimated GFR (Non- 87.6 BUN/Creatinine Ratio 15.2 (10-20) Calcium Level 8.4 mg/dl (8.5-10.1) Magnesium Level 2.2 mg/dl (1.8-2.4) Total Bilirubin 0.5 mg/dl (0.2-1) Aspartate Amino Transf (AST/SGOT) 11 U/L (15-37) Alanine Aminotransferase (ALT/SGPT) 19 U/L (12-78) Alkaline Phosphatase 57 U/L (45-117) Total Protein 6.2 gm/dl (6.4-8.2) Albumin 3.7 gm/dl (3.4-5.0) Globulin 2.5 gm/dl (2.5-4.0) Albumin/Globulin Ratio 1.5 (0.9-2) Triglycerides Level 45 mg/dl (0-150) Cholesterol Level 164 mg/dl (0-200) HDL Cholesterol 58 mg/dl LDL Cholesterol, Calculated 97 mg/dl VLDL Cholesterol, Calculated 9 mg/dl Cholesterol/HDL Ratio 2.8 Lipid Panel Test 06/14/17 04:38 Range/Units Triglycerides Level 45 0-150 mg/dl Cholesterol Level 164 0-200 mg/dl HDL Cholesterol 58 mg/dl Cholesterol/HDL Ratio 2.8 LDL Cholesterol, Calculated 97 mg/dl Medical Emergencies . Who to Call and When: Medical Emergencies: If at any time you feel your situation is an emergency, please call 911 immediately. . Non-Emergent Contact Non-Emergency issues call your: Primary Care Provider Call Non-Emergent contact if: you have any medication questions . . "Provider Documentation" section prepared by David Mojica. . VTE Core Measure Inpt VTE Proph given/why not?: Enoxaparin (Lovenox)SQ
[2017-06-14 13:49] VITALS: BP 145/75; PULSE 76; TEMP 36.7; O2SAT 98
[2017-06-15] MEDS ORDERED: ASPIRIN 81 MG ECTAB PO SCH (09:00)
--- NOTE | 2017-06-17 11:26 | EXERCISE STRESS ECHO ---
*NOTICE TO RECEIVING [employer] This information is strictly Confidential and protected under [place] law. [place] law prohibits you from making any further disclosure of this information unless further disclosure is expressly permitted by the written consent of the person to whom it pertains or is authorized by law. A general authorization for the release of medical or other information is not sufficient for this purpose. Hospital accepts no responsibility if the information is made available to any other person, INCLUDING THE PATIENT. Interpretation Summary * Name: YVROSE HSIEH Study Date: 06/14/2017 09:37 AM BP: 125/84 mmHg * Patient Location: [facility] HR: 68 * : 1945 (M/d/yyyy) Gender: Male Height: 68 in * Age: 72 yrs Ethnicity: [place] Weight: 176 lb * Ordering Physician: Daysi Nicholson * Referring Physician: Self, Referred * Performed By: Pamela Sebastian RCS * * Reason For Study: CHEST PAIN * BSA: 1.9 m2 * -- Conclusions -- * Nonischemic exercise stress echocardiogram. * No arrhythmias. * Normal HR and BP response to exercise. * Above average exercise tolerance. * At rest, normal LV chamber size and wall thickness. * Normal LV systolic function, EF 55-60%. * No segmental left ventricular wall motion abnormalities are noted. * Grade I diastolic dysfunction. * Mild mitral annular calcifications without stenosis or regurgitation. * Borderline enlargement of the aortic root at 4 cm. Procedure Details * ECHOEX, CPT #[id number] * ECHO COLOR FLOW, CPT #[id number] * ECHO DOPPLER, CPT #[id number] Left Ventricle * The left ventricle is normal in size. * There is normal left ventricular wall thickness. * Left ventricular systolic function is normal. * No segmental left ventricular wall motion abnormalities are noted. * Ejection Fraction = 55-60%. * Resting wall motion: Normal. Stress wall motion: Appropriate increase in Left ventricular systolic function and decrease in cavity size. No stress induced segmental wall motion abnormalities. Right Ventricle * The right ventricular cavity size is normal (basal dimension <4.2 cm in right ventricular apical 4-chamber view). * The right ventricular systolic function is normal as assessed by tricuspid annular plane systolic excursion (TAPSE) (normal >1.5 cm). Atria * The left atrial size is normal. * Right atrial size is normal. * No ASD detected; PFO is not assessed. Mitral Valve * There is mild mitral annular calcification. * There is no mitral valve stenosis. * There is no mitral regurgitation noted. Tricuspid Valve * The tricuspid valve is normal in structure and function. Aortic Valve * The aortic valve is normal in structure and function. Pulmonic Valve * The pulmonary valve is not well seen, but the Doppler examination is normal without significant regurgitation or stenosis. Great Vessels * Borderline aortic root dilatation. * Ascending aorta of normal dimension Pericardium * There is no pericardial effusion. Stress Parameters * Normal baseline electrocardiogram. * Stress ECG: No ST changes. No arrhythmias. * No arrhythmia were noted with stress. * The stress portion of this study was personally supervised by the undersigned interpreting physician. * Rest heart rate was '68' BPM. * Rest blood pressure was '125/84' * Maximum heart rate achieved was 148 bpm. * Maximum heart rate was 101 % of maximum age-predicted heart rate. * Maximum blood pressure was '190/99' * Total exercise time was '9:01' * Maximum exercise MET level achieved was '10.1' METS * Maximum treadmill speed was '3.41' miles per hour. * Maximum treadmill elevation was '14'% grade. * Exercise was terminated due to 'target heart rate achieved' * Normal blood pressure response to exercise. Left Ventricular Diastolic Function * Grade I diastolic dysfunction, (abnormal relaxation pattern). MMode 2D Measurements and Calculations IVSd 0.98 cm IVSs 1.2 cm LVIDd 4.3 cm LVIDs 2.7 cm LVPWd 1.0 cm LVPWs 1.2 cm IVS/LVPW 0.95 FS 37.9 % EDV(Teich) 84.8 ml ESV(Teich) 26.9 ml EF(Teich) 68.3 % EDV(cubed) 81.6 ml ESV(cubed) 19.6 ml EF(cubed) 76.0 % % IVS thick 24.2 % % LVPW thick 15.9 % LV mass(C)d 144.8 grams LV mass(C)dI 74.8 grams/m\S\2 LV mass(C)s 94.5 grams LV mass(C)sI 48.8 grams/m\S\2 SV(Teich) 57.9 ml SI(Teich) 29.9 ml/m\S\2 SV(cubed) 62.0 ml SI(cubed) 32.0 ml/m\S\2 Ao root diam 4.0 cm Ao root area 12.4 cm\S\2 ACS 1.7 cm LA dimension 3.6 cm asc Aorta Diam 3.9 cm LA/Ao 0.91 EDV(MOD-sp4) 101.0 ml ESV(MOD-sp4) 42.0 ml EF(MOD-sp4) 58.4 % EDV(MOD-sp2) 76.2 ml ESV(MOD-sp2) 30.6 ml EF(MOD-sp2) 59.8 % SV(MOD-sp4) 59.0 ml SI(MOD-sp4) 30.5 ml/m\S\2 SV(MOD-sp2) 45.6 ml SI(MOD-sp2) 23.6 ml/m\S\2 Doppler Measurements and Calculations MV E max lorenza 56.6 cm/sec MV A max lorenza 74.4 cm/sec MV E/A 0.76 MV P1/2t max lorenza 55.1 cm/sec MV P1/2t 116.3 msec MVA(P1/2t) 1.9 cm\S\2 MV dec slope 138.8 cm/sec\S\2 MV dec time 0.30 sec Ao V2 max 103.4 cm/sec Ao max PG 4.3 mmHg Ao max PG (full) 1.6 mmHg LV V1 max PG 2.6 mmHg LV V1 max 81.4 cm/sec PA V2 max 89.1 cm/sec PA max PG 3.2 mmHg PI max lorenza 151.3 cm/sec PI max PG 9.2 mmHg PI dec slope 81.3 cm/sec\S\2 PI P1/2t 545.1 msec TR max lorenza 208.6 cm/sec
== END 2017-06-14 14:10 | disposition home or self-care (01) ==
LOC: C.EDB 00:18 → C.2T 06:57 → ENRESERV 07:19
PROVIDERS: ADMIT Internal Medicine; ATTEND Hospitalist
DX: R07.89 Other chest pain (principal); R42 Dizziness and giddiness; K21.9 Gastro-esophageal reflux disease without esophagitis; N40.0 Benign prostatic hyperplasia without lower urinary tract symptoms; Z87.81 Personal history of (healed) traumatic fracture; Z90.49 Acquired absence of other specified parts of digestive tract; Z79.899 Other long term (current) drug therapy; Z90.89 Acquired absence of other organs; Z88.0 Allergy status to penicillin; Z88.2 Allergy status to sulfonamides; Z88.1 Allergy status to other antibiotic agents; Z88.5 Allergy status to narcotic agent

== ENCOUNTER 2022-11-14 09:58 | Inpatient (IN) ==
--- NOTE | 2022-11-14 10:23 | Emergency Department Note ---
History of Present Illness General Chief complaint: TIA Symptoms Stated complaint: TIA SX Time Seen by Provider: 11/14/22 10:02 History of Present Illness 77-year-old male presents emergency department via EMS reportedly he woke up at approximately 3 AM this evening as he has an enlarged prostate and states he was going to the bathroom. Patient was unable to go back to sleep. He did eat doughnuts and had 2 cups of coffee. And then during the night he also took some Pepto. Patient at that time states he had dizziness he felt like he was spinning and was unsteady. This was approximately around 6:30 AM according to the patient he then called the telehealth nurse and while he was speaking to the telehealth nurse he was having problems with his speech and finding words. That essentially lasted 10 minutes he states and then resolved. Patient's had no prior history of stroke or TIA or intracranial hemorrhage. Patient reports to me that in the past year has had an MRI of his brain which was negative. Patient is not on any blood thinners he states he takes vitamins only. Patient states currently all of the symptoms have completely resolved. EMS gave me report via medical command with stable vital signs. Home Medications Medication Instructions Recorded Confirmed Type multivitamin 1 tab PO QAM 04/14/18 11/14/22 History clindamycin phosphate 1 % topical 1 applic topical DAILY PRN 07/04/19 11/14/22 History gel (Cleocin T) BREAKOUTS fluorouracil 5 % topical cream 1 applic topical HS PRN BREAKOUTS 07/04/19 History (Efudex) ketoconazole 1 % shampoo 1 applic topical UD 02/17/20 11/14/22 History Allergies Allergy/AdvReac Type Severity Reaction Status Date / Time sulfamethoxazole Allergy Intermediate face Verified 11/14/22 13:13 breaks outin boils trimethoprim Allergy Intermediate face Verified 11/14/22 13:13 breaks outin boils tetracycline Allergy Mild RASH Verified 11/14/22 13:13 Bactrim Allergy Unknown face Verified 03/10/16 15:33 breaks outin boils Penicillins Allergy Unknown as a Verified 11/14/22 13:13 child, Dr Jeni REED with Ancef [id number] adm chocolate flavor AdvReac Intermediate Migraine Unverified 11/14/22 13:13 oxycodone AdvReac Mild n/v Verified 11/14/22 13:13 dairy AdvReac Intermediate migraines Uncoded 11/14/22 13:13 perfumes AdvReac Intermediate migraines Uncoded 11/14/22 13:13 Past Med/Surg History Medical History Chronic back pain History of COVID-19 asymptomatic 02/2020. no current issues History of stomach ulcers Hx of colonic polyps Hx of migraines Osteoarthritis Surgical History History of cholecystectomy History of colonoscopy History of esophagogastroduodenoscopy (EGD) History of herniorrhaphy INGUINAL X 2 AND UMBILICAL History of tonsillectomy and adenoidectomy History of tooth extraction Hx of cataract extraction lt. S/P epidural steroid injection Family History Other Family history non-contributory No family history of adverse response to anesthesia Social History Smoking Status: Never smoker Second Hand Exposure: No; Do You Dip or Chew Tobacco: No; Hx Alcohol Use: No Hx Substance Use: No Preferred Language: Tamazight Communication Ability: Effective Brand Advisor Required: No Beliefs That Will Affect Care: None Current Living Situation: Spouse Feels Safe at Home: Yes Assistive Devices: Glasses Review of Systems A total of 10 systems reviewed and were otherwise negative Constitutional: no fever Cardiovascular: no chest pain Gastrointestinal: no abdominal pain Neurologic: + dizziness and + abnormal speech Physical Exam Vital Signs Vital Signs - 24 hr 11/14/22 10:05 11/14/22 11:33 Temperature 36.8 C Temperature Source Oral Pulse Rate 81 72 Pulse Rhythm Regular Pulse Strength Normal Respiratory Rate 18 Respiratory Effort / Characteristics Non-Labored Respiratory Depth Normal Blood Pressure 168/106 H Blood Pressure Mean 126 Pulse Oximetry 99 Oxygen Delivery Method Room Air Sepsis Recent Fever Within 48 Hours No Sepsis New/Unexplained Change in Mental Status No Sepsis Action Taken by Nursing No Action Required GENERAL: Patient is awake alert in no acute distress patient is resting comfortably and showing no signs of anxiety EYES: The conjunctivae are clear. The pupils are round and reactive. EARS, NOSE, MOUTH AND THROAT: The nose is without any evidence of any deformity. Mucous membranes are moist. Tongue is midline. NECK: The neck is nontender and supple. RESPIRATORY: Normal respiratory effort is noted there is no evidence of wheezing rhonchi or rales CARDIOVASCULAR: Regular rate and rhythm noted there no murmurs rubs or gallops normal S1 normal S2. GASTROINTESTINAL: The abdomen is soft. Abdomen is nontender. BACK: No midline tenderness or or step-off noted range of motion in flexion extension as well as rotation no signs of muscle spasm noted MUSCULOSKELETAL/EXTREMITIES: There is no evidence of gross deformity full range of motion is noted in the hips and shoulders. SKIN: There is no obvious evidence of any rash. There are no petechiae, pallor or cyanosis noted. NEUROLOGIC: Patient is awake alert and oriented x3 strength is symmetric; GCS of 15, NIH is 0 Course Reevaluation(s) Reevaluation #1: Patient is resting in no distress. NIH of 0. Patient will be admitted for TIA symptoms. Time: 12:00 Consultations Consultation #1: Case was discussed with the [facility] hospitalist for admission for TIA Time: 13:42 Administered Medications Discontinued Medications Ioversol (Ioversol 350 Mg 125ml Prefilled Syringe) 118 ml IV ONCE ONE Stop: 11/14/22 11:59 Last Admin: 11/14/22 11:59 Dose: 118 ml Documented By: FARRAH Medical Decision Making Medical Records Attestation: I reviewed the patient's medical records. Home Medications Current Medication List: was personally reviewed by me Laboratory Data Attestation: I reviewed the patient's lab results. Lab work interpreted by me is unremarkable 11/14/22 09:32 11/14/22 09:32 Lab Results 11/14/22 11/14/22 11/14/22 Range/Units 09:32 09:32 09:32 WBC 6.24 (4.8-10.8) K/ul RBC 5.16 (4.70-6.10) M/uL Hgb 15.9 (14.0-18.0) g/dl Hct 49.0 (42.0-52.0) % MCV 95.0 (80.0-100.0) fL MCH 30.8 (25.0-34.0) pg MCHC 32.4 (32.0-36.0) g/dL RDW Std Deviation 46.7 H (36.4-46.3) fL RDW Coeff of Ezra 13.3 (11.5-14.5) % Plt Count 295 (130-400) K/uL MPV 9.9 (9.4-12.4) fL Immature Gran % (Auto) 0.6 % Neut % (Auto) 59.9 % Lymph % (Auto) 28.4 % Bibb % (Auto) 7.1 % Eos % (Auto) 3.5 % Baso % (Auto) 0.5 % Neut # (Auto) 3.74 (1.40-6.50) K/uL Lymph # (Auto) 1.77 (1.2-3.4) K/uL Bibb # (Auto) 0.44 (0.11-0.59) K/uL Eos # (Auto) 0.22 (0-0.50) K/uL Baso # (Auto) 0.03 (0-0.2) K/uL Immature Gran # (Auto) 0.04 (0.01-0.20) K/uL PT 12.0 (9.0-12.0) Seconds INR 1.1 (0.9-1.1) APTT 27.6 (21.0-31.0) Seconds PTT Ratio 1.0 Sodium 141 (136-145) mmol/L Potassium 3.7 (3.5-5.1) mmol/L Chloride 107 (98-107) mmol/L Carbon Dioxide 27 (21-32) mmol/L Anion Gap 7 (3-11) BUN 11 (6-23) mg/dl Creatinine 0.90 (0.6-1.4) mg/dl Est Cr Clr Drug Dosing 66.6 ml/min Est GFR ( Amer) 93.8 ml/min Est GFR (Non-Af Amer) 80.9 ml/min BUN/Creatinine Ratio 12.2 (10-20) Glucose 86 (70-99(Fasting)) mg/dl Calcium 9.5 (8.6-10.3) mg/dl Magnesium 2.0 (1.7-2.4) mg/dl Total Bilirubin 1.1 H (0.2-1.0) mg/dl AST 18 (13-39) U/L ALT 16 (7-52) U/L Alkaline Phosphatase 51 (34-104) U/L Troponin I High Sens 3.9 (0-20) pg/ml Total Protein 6.8 (6.0-8.3) gm/dl Albumin 4.5 (3.4-5.0) gm/dl Globulin 2.3 L (2.5-4.0) gm/dl Albumin/Globulin Ratio 2.0 (0.9-2) Blood Type Antibody Screen 11/14/22 Range/Units 10:19 WBC (4.8-10.8) K/ul RBC (4.70-6.10) M/uL Hgb (14.0-18.0) g/dl Hct (42.0-52.0) % MCV (80.0-100.0) fL MCH (25.0-34.0) pg MCHC (32.0-36.0) g/dL RDW Std Deviation (36.4-46.3) fL RDW Coeff of Ezra (11.5-14.5) % Plt Count (130-400) K/uL MPV (9.4-12.4) fL Immature Gran % (Auto) % Neut % (Auto) % Lymph % (Auto) % Bibb % (Auto) % Eos % (Auto) % Baso % (Auto) % Neut # (Auto) (1.40-6.50) K/uL Lymph # (Auto) (1.2-3.4) K/uL Bibb # (Auto) (0.11-0.59) K/uL Eos # (Auto) (0-0.50) K/uL Baso # (Auto) (0-0.2) K/uL Immature Gran # (Auto) (0.01-0.20) K/uL PT (9.0-12.0) Seconds INR (0.9-1.1) APTT (21.0-31.0) Seconds PTT Ratio Sodium (136-145) mmol/L Potassium (3.5-5.1) mmol/L Chloride (98-107) mmol/L Carbon Dioxide (21-32) mmol/L Anion Gap (3-11) BUN (6-23) mg/dl Creatinine (0.6-1.4) mg/dl Est Cr Clr Drug Dosing ml/min Est GFR ( Amer) ml/min Est GFR (Non-Af Amer) ml/min BUN/Creatinine Ratio (10-20) Glucose (70-99(Fasting)) mg/dl Calcium (8.6-10.3) mg/dl Magnesium (1.7-2.4) mg/dl Total Bilirubin (0.2-1.0) mg/dl AST (13-39) U/L ALT (7-52) U/L Alkaline Phosphatase (34-104) U/L Troponin I High Sens (0-20) pg/ml Total Protein (6.0-8.3) gm/dl Albumin (3.4-5.0) gm/dl Globulin (2.5-4.0) gm/dl Albumin/Globulin Ratio (0.9-2) Blood Type O Positive Antibody Screen NEGATIVE Imaging Data Attestation: I personally reviewed and interpreted this imaging study as follows: My Impression: CT of the brain per my interpretation is negative for intracranial hemorrhage Radiologist's Impression: Head CT 11/14/22 10:08 CT OF THE HEAD WITHOUT CONTRAST CLINICAL HISTORY: neuro deficit, acute stroke suspected COMPARISON STUDY: Head CT July 31, 2021. TECHNIQUE: Helical axial images of the head were obtained without IV contrast. Automated exposure control was utilized for the study. A dose lowering technique was utilized adhering to the principles of ALARA. FINDINGS: No acute intracranial hemorrhage, midline shift or mass effect is present. White matter hypodensities are unchanged and favor small vessel disease. The ventricular system is unremarkable. The basal cisterns are patent. No extra-axial collections are present. There are no findings to suggest acute dural sinus thrombosis or acute territorial infarct. No significant calvarial abnormalities are present. Visualized portions of the sinuses and mastoid air cells are clear. IMPRESSION: No acute intracranial findings. No change in appearance of the brain. ACT 112: Negative or not required by law. Electronically signed by: Harsh Hdz M.D. 11/14/2022 12:43 PM Head CTA 11/14/22 10:08 HEAD CTA HISTORY: neuro deficit, acute stroke suspected TECHNIQUE: Multiaxial CT images of the head were performed following the intravenous administration of contrast to evaluate the major cerebral vessels. 3D/MIP images were also obtained. Sagittal and coronal reformats were reviewed. A dose lowering technique was utilized adhering to the principles of ALARA. COMPARISON: Head CT 11/14/2022. FINDINGS: There is no mass, hematoma, midline shift, or acute infarct. Visualized intracranial internal carotid arteries, distal vertebral arteries, and basilar artery are widely patent. There is no significant stenosis, occlusion, or aneurysm seen within the bilateral ACAs, MCAs, or honing job setter. IMPRESSION: No significant stenosis, occlusion, or aneurysm within the [place]. ACT 112: Negative or not required by law. Electronically signed by: Moose Sharma M.D. 11/14/2022 1:02 PM Neck CTA 11/14/22 10:08 NECK CTA HISTORY: neuro deficit, acute stroke suspected TECHNIQUE: Multiaxial CT images of the neck were performed following the intravenous administration of contrast to evaluate the major cervical vessels. 3D/MIP images were also obtained. Sagittal and coronal reformats were reviewed. All measurements were calculated based on NASCET criteria. A dose lowering technique was utilized adhering to the principles of ALARA. COMPARISON STUDY: None. FINDINGS: The aortic arch and proximal great vessels are widely patent. There is no significant stenosis, occlusion, or dissection identified within the bilateral common carotid, internal carotid, or vertebral arteries. 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 There is mild to moderate calcified plaque within the carotid bifurcations. IMPRESSION: No significant stenosis, occlusion, or dissection identified within the carotid or vertebral arteries. ACT 112: Negative or not required by law. Electronically signed by: Moose Sharma M.D. 11/14/2022 12:27 PM Abdomen/Pelvis CT 11/14/22 11:[address] WITHOUT CONTRAST CT DOSE: 2235.30 mGy.cm HISTORY: sepsis TECHNIQUE: Multiaxial CT images of the abdomen and pelvis were performed without contrast. A dose lowering technique was utilized adhering to the principles of ALARA. COMPARISON STUDY: Chest CTA 06/14/2017. FINDINGS: Subcentimeter subpleural nodules within the right lower lobe remain stable and are therefore considered to be benign. There are few bibasilar linear densities suggestive of scarring or subsegmental atelectasis. There is a new 4 mm groundglass nodule within the lingula on image 22. No pneumoperitoneum. No pneumatosis. No acute fractures identified. Scattered hypodense lesions within the liver are again noted. These favor cysts. Dominant lesion within the left hepatic lobe measures 2.2 cm. Prior cholecystectomy. The unenhanced spleen, adrenal glands, and pancreas are unremarkable. No retroperitoneal lymphadenopathy. There is an ectatic abdominal aorta measuring up to 2.7 cm in diameter. No pelvic lymphadenopathy or pelvic free fluid. The bladder is within normal limits. The prostate gland is mildly enlarged. There are few punctate bilateral renal calculi. No ureteral calculi. No hydronephrosis. Bilateral peripelvic renal cysts are noted. Bilateral renal hypodense lesions with the largest on the right measuring 7.6 cm. These favor cysts but are incompletely characterized on this noncontrast study. No bowel wall thickening or obstruction. Normal appendix. Mild bilateral perinephric edema. This is likely chronic. IMPRESSION: 1. No bowel wall thickening or obstruction. 2. Bilateral nephrolithiasis. No ureteral stones. No hydronephrosis. 3. A new 4 mm groundglass nodule within the lingula. Follow-up recommended below. 4. Additional findings as described above. Please refer to below summary of Fleischner criteria recommendations for follow- up of incidental CT nodules (Efrain Goldsmith, Guidelines for management of small pulmonary nodules detected on CT scans: A statement from the Fleischner Society, Radiology 237: [phone].) SOLID NODULES Solitary nodule size: <6 mm * Low risk patients: no follow-up needed * high risk patients: optional CT at 12 months Solitary nodule size: 6-8 mm * Low risk patients: follow-up at 6-12 months, then consider further follow-up at 18-24 months * high risk patients: initial follow-up CT at 6-12 months and then at 18-24 months if no change Solitary nodule size: >8 mm * either low or high risk patients - consider follow-up CT at 3 months, and/or CT-PET, and/or biopsy Multiple nodules size: <6 mm * Low risk patients: no routine follow-up * high risk patients: optional CT at 12 months Multiple nodules size: 6-8 mm * Low risk patients: follow-up at 3-6 months, then consider further follow-up at 18-24 months * high risk patients: follow-up at 3-6 months, then at 18-24 months if no change Multiple nodules size: >8 mm * Low risk patients: follow-up at 3-6 months, then consider further follow-up at 18-24 months * high risk patients: follow-up at 3-6 months, then at 18-24 months if no change Note: newly detected indeterminate nodule in persons 35 years of age or older. * Low risk patients: minimal or absent history of smoking and/or other known risk factors * high risk patients: history of smoking or of other known risk factors (e.g. first degree relative with lung cancer, or exposure to asbestos, radon, uranium) * if a nodule up to 8 mm is partly solid or is ground glass further follow-up is required after 24 months to exclude possible slow growing adenocarcinoma (THELMA) SUBSOLID NODULES Solitary pure ground-glass nodule * nodule size <6 mm - no CT follow-up required * nodule size >=6 mm - follow-up CT at 6-12 months, then every 2 years until 5 years Solitary part-solid nodule * nodule size <6 mm - no CT follow-up required * nodule size >=6 mm - follow-up CT at 3-6 months. If unchanged, and solid component remains <6 mm, then annual follow-up for 5 years Multiple subsolid nodules * nodule size <6 mm - follow-up CT at 3-6 months, consider further follow-up at 2 and 4 years if stable * nodule size >=6 mm - follow-up CT at 3-6 months, subsequent management based on the most suspicious nodule(s) ACT 112: Negative or not required by law. Electronically signed by: Moose Sharma M.D. 11/14/2022 12:38 PM ECG Data Attestation: I personally reviewed and interpreted this ECG as follows: Additional Comments: EKG interpreted by me normal sinus rhythm incomplete right bundle branch block, left anterior hemiblock, no obvious ST segment elevation or depression, rate is 75 Telemetry was ordered by me interpreted as normal sinus rhythm rate of 75 MDM Narrative Medical decision making differential diagnosis includes TIA, CVA, vertigo, electrolyte abnormality, cardiac dysrhythmia, intracranial hemorrhage Plan Labs, EKG, CT EMS gave me bedside report Patient currently has an NIH of 0 at 10:22 AM, I do not think that this patient is a tPA candidate at this time External medical records were reviewed by me Patient's NIH is 0, no current symptoms, will be admitted for TIA., The patient is not a tPA candidate at this time at the time of admission at 1340 Impression & Plan TIA (transient ischemic attack), Dizziness Discharge Plan Visit Data Chief Complaint: TIA Symptoms Stated Complaint: TIA SX ED Provider: Kristofer Hart Discharge Problem: TIA (transient ischemic attack), Dizziness Patient Disposition: Admitted As Inpatient Forms Stand Alone Forms: [facility] Prescriptions Prescriptions: No Action multivitamin Tablet 1 tab PO QAM ketoconazole 1 % Shampoo 1 applic TOPICAL UD fluorouracil [Efudex] 5 % cream 1 applic TOPICAL HS PRN (Reason: BREAKOUTS) clindamycin phosphate [Cleocin T] 1 % gel 1 applic TOPICAL DAILY PRN (Reason: BREAKOUTS) Referrals Referrals: Nirav Narayanan MD [Primary Care Provider] -
[2022-11-14 10:28] LABS: Basophils # (auto) 0.03 K/uL (0-0.2); Basophils % (auto) 0.5 %; Eosinophils # (auto) 0.22 K/uL (0-0.50); Eosinophils % (auto) 3.5 %; Hemoglobin 15.9 g/dl (14.0-18.0); Immature Granulocytes # (auto) 0.04 K/uL (0.01-0.20); Immature Granulocytes % (auto) 0.6 %; Lymphocytes # (auto) 1.77 K/uL (1.2-3.4); Lymphocytes % (auto) 28.4 %; Mean Corpuscular Hemoglobin 30.8 pg (25.0-34.0); Mean Corpuscular Hgb Conc 32.4 g/dL (32.0-36.0); Mean Platelet Volume 9.9 fL (9.4-12.4); Monocytes # (auto) 0.44 K/uL (0.11-0.59); Monocytes % (auto) 7.1 %; Neutrophils # (auto) 3.74 K/uL (1.40-6.50); Neutrophils % (auto) 59.9 %; Platelet Count 295 K/uL (130-400); RDW Coefficient of Variation 13.3 % (11.5-14.5); RDW Standard Deviation 46.7 fL (36.4-46.3); Red Blood Count 5.16 M/uL (4.70-6.10); White Blood Count 6.24 K/ul (4.8-10.8)
[2022-11-14 10:48] LABS: Albumin Level 4.5 gm/dl (3.4-5.0); BUN Creatinine Ratio 12.2 (10-20); Bilirubin,Total 1.1 mg/dl (0.2-1.0); Calcium 9.5 mg/dl (8.6-10.3); Creatinine Clr Calc Pharmacy 66.6 ml/min; Est GFR (African American) 93.8 ml/min; Est GFR (Non-African American) 80.9 ml/min; Globulin 2.3 gm/dl (2.5-4.0); Potassium 3.7 mmol/L (3.5-5.1); Total Protein 6.8 gm/dl (6.0-8.3)
[2022-11-14 10:53] LABS: Troponin I High Sensitivity 3.9 pg/ml (0-20)
[2022-11-14 10:54] LABS: INR 1.1 (0.9-1.1); Partial Thromboplastin Time 27.6 Seconds (21.0-31.0)
[2022-11-14] MEDS ORDERED: cefTRIAXone SODIUM 2,000 MG/70 ML BAG IV STA (11:16)
--- NOTE | 2022-11-14 11:20 | Electrocardiogram Report ---
Test Reason : Blood Pressure : / mmHG Vent. 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
[2022-11-14] MEDS ORDERED: IOVERSOL 350 MG 125mL Prefilled Syringe IV ONE (11:58)
--- NOTE | 2022-11-14 12:28 | CT Scan Report ---
NECK CTA HISTORY: neuro deficit, acute stroke suspected TECHNIQUE: Multiaxial CT images of the neck were performed following the intravenous administration o f contrast to evaluate the major cervical vessels. 3D/MIP images were also obtained. Sagittal and cor onal reformats were reviewed. All measurements were calculated based on NASCET criteria. A dose low ering technique was utilized adhering to the principles of ALARA. COMPARISON STUDY: None. FINDINGS: The aortic arch and proximal great vessels are widely patent. There is no significant sten osis, occlusion, or dissection identified within the bilateral common carotid, internal carotid, or v ertebral arteries. 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 There is mild to moderate calcified plaque within the carotid bifurcations . IMPRESSION: No significant stenosis, occlusion, or dissection identified within the carotid or vertebral arteries . ACT 112: Negative or not required by law. Electronically signed by: Moose Sharma M.D. 11/14/2022 12:27 PM
--- NOTE | 2022-11-14 12:40 | CT Scan Report ---
ABDOMEN AND PELVIS CT WITHOUT CONTRAST CT DOSE: 2235.30 mGy.cm HISTORY: sepsis TECHNIQUE: Multiaxial CT images of the abdomen and pelvis were performed without contrast. A dose lo wering technique was utilized adhering to the principles of ALARA. COMPARISON STUDY: Chest CTA 06/14/2017. FINDINGS: Subcentimeter subpleural nodules within the right lower lobe remain stable and are therefor e considered to be benign. There are few bibasilar linear densities suggestive of scarring or subsegm ental atelectasis. There is a new 4 mm groundglass nodule within the lingula on image 22. No pneumope ritoneum. No pneumatosis. No acute fractures identified. Scattered hypodense lesions within the liver are again noted. These favor cysts. Dominant lesion within the left hepatic lobe measures 2.2 cm. Pr ior cholecystectomy. The unenhanced spleen, adrenal glands, and pancreas are unremarkable. No retrope ritoneal lymphadenopathy. There is an ectatic abdominal aorta measuring up to 2.7 cm in diameter. No pelvic lymphadenopathy or pelvic free fluid. The bladder is within normal limits. The prostate gland is mildly enlarged. There are few punctate bilateral renal calculi. No ureteral calculi. No hydroneph rosis. Bilateral peripelvic renal cysts are noted. Bilateral renal hypodense lesions with the largest on the right measuring 7.6 cm. These favor cysts but are incompletely characterized on this noncontr ast study. No bowel wall thickening or obstruction. Normal appendix. Mild bilateral perinephric edema . This is likely chronic. IMPRESSION: 1. No bowel wall thickening or obstruction. 2. Bilateral nephrolithiasis. No ureteral stones. No hydronephrosis. 3. A new 4 mm groundglass nodule within the lingula. Follow-up recommended below. 4. Additional findings as described above. Please refer to below summary of Fleischner criteria recommendations for follow-up of incidental CT n odules (Efrain Goldsmith, Guidelines for management of small pulmonary nodules detected on CT scans: A sta tement from the Fleischner Society, Radiology 237: [phone].) SOLID NODULES Solitary nodule size: <6 mm * Low risk patients: no follow-up needed * high risk patients: optional CT at 12 months Solitary nodule size: 6-8 mm * Low risk patients: follow-up at 6-12 months, then consider further follow-up at 18-24 months * high risk patients: initial follow-up CT at 6-12 months and then at 18-24 months if no change Solitary nodule size: >8 mm * either low or high risk patients - consider follow-up CT at 3 months, and/or CT-PET, and/or biopsy Multiple nodules size: <6 mm * Low risk patients: no routine follow-up * high risk patients: optional CT at 12 months Multiple nodules size: 6-8 mm * Low risk patients: follow-up at 3-6 months, then consider further follow-up at 18-24 months * high risk patients: follow-up at 3-6 months, then at 18-24 months if no change Multiple nodules size: >8 mm * Low risk patients: follow-up at 3-6 months, then consider further follow-up at 18-24 months * high risk patients: follow-up at 3-6 months, then at 18-24 months if no change Note: newly detected indeterminate nodule in persons 35 years of age or older. * Low risk patients: minimal or absent history of smoking and/or other known risk factors * high risk patients: history of smoking or of other known risk factors (e.g. first degree relative with lung cancer, or exposure to asbestos, radon, uranium) * if a nodule up to 8 mm is partly solid or is ground glass further follow-up is required after 24 m onths to exclude possible slow growing adenocarcinoma (THELMA) SUBSOLID NODULES Solitary pure ground-glass nodule * nodule size <6 mm - no CT follow-up required * nodule size >=6 mm - follow-up CT at 6-12 months, then every 2 years until 5 years Solitary part-solid nodule * nodule size <6 mm - no CT follow-up required * nodule size >=6 mm - follow-up CT at 3-6 months. If unchanged, and solid component remains <6 mm, then annual follow-up for 5 years Multiple subsolid nodules * nodule size <6 mm - follow-up CT at 3-6 months, consider further follow-up at 2 and 4 years if sta ble * nodule size >=6 mm - follow-up CT at 3-6 months, subsequent management based on the most suspiciou s nodule(s) ACT 112: Negative or not required by law. Electronically signed by: Moose Sharma M.D. 11/14/2022 12:38 PM
--- NOTE | 2022-11-14 12:44 | CT Scan Report ---
CT OF THE HEAD WITHOUT CONTRAST CLINICAL HISTORY: neuro deficit, acute stroke suspected COMPARISON STUDY: Head CT July 31, 2021. TECHNIQUE: Helical axial images of the head were obtained without IV contrast. Automated exposure con trol was utilized for the study. A dose lowering technique was utilized adhering to the principles o f ALARA. FINDINGS: No acute intracranial hemorrhage, midline shift or mass effect is present. White matter hyp odensities are unchanged and favor small vessel disease. The ventricular system is unremarkable. The basal cisterns are patent. No extra-axial collections are present. There are no findings to suggest a cute dural sinus thrombosis or acute territorial infarct. No significant calvarial abnormalities are present. Visualized portions of the sinuses and mastoid air cells are clear. IMPRESSION: No acute intracranial findings. No change in appearance of the brain. ACT 112: Negative or not required by law. Electronically signed by: Harsh Hdz M.D. 11/14/2022 12:43 PM
--- NOTE | 2022-11-14 13:04 | CT Scan Report ---
HEAD CTA HISTORY: neuro deficit, acute stroke suspected TECHNIQUE: Multiaxial CT images of the head were performed following the intravenous administration o f contrast to evaluate the major cerebral vessels. 3D/MIP images were also obtained. Sagittal and co yoseph reformats were reviewed. A dose lowering technique was utilized adhering to the principles of A SUNSHINE. COMPARISON: Head CT 11/14/2022. FINDINGS: There is no mass, hematoma, midline shift, or acute infarct. Visualized intracranial environmental health and safety intern al carotid arteries, distal vertebral arteries, and basilar artery are widely patent. There is no sig nificant stenosis, occlusion, or aneurysm seen within the bilateral ACAs, MCAs, or eyewear consultant. IMPRESSION: No significant stenosis, occlusion, or aneurysm within the [place]. ACT 112: Negative or not required by law. Electronically signed by: Moose Sharma M.D. 11/14/2022 1:02 PM
--- NOTE | 2022-11-14 13:11 | History & Physical Report ---
Date of Service November 14, 2022 Assessment & Plan (1) Stroke-like symptoms: (2) Ambulatory dysfunction: (3) Mass of lingula of lung: Plan 77 year old male presents today with TIA symptoms. He awoke at 0300; couldn't get to sleep. He drank some coffee and ate a few donuts. He took some Pepto Bismol and tried to return to sleep but was unable. He called telehealth nurse and while on the line; he had some word finding difficulty and slurred speech - promoting EMS to be called. NIH 0 on arrival to ED and head/neck CTA imaging is not suggestive of an active stroke. ECG on arrival shows a new RBBB compared to his last ECG 02/2022. He has been experiencing ambulatory dysfunction over the past few months and visited with his PCP who performed a brain MRI on 06/26/2022 without contrast that was negative for stroke. No history of known stroke or AMI. No real pertinent medical history outside of lumbar DDD; takes a MVI daily. No neuro stroke consult performed in ER. Does not meet TNK criteria. Does report having intermittent left eye twitching with ocular pain. Intermittent doni rry and double vision. Has had cataract surgery in August and September 2022 in [place]. Most recent stress ECHO was 2017 with results indicating no arrhythmias, normal EF 55-60% with G1DDx and mild mitral calcifications without stenosis. No ectopy or arrhythmias on monitor. Does not appear toxic and no leukocytosis. Stroke Like Symptoms: Ambulatory Dysfunction: No formal neuro telehealth stroke consult placed as symptoms fully resolved when he arrived to ED Head/Neck CTA negative Will obtain brain MRI with and without contrast for full neuro work up. Has not had contrast today with imaging; Creatinine 0.90 Allow permissive HTN Initiate Simvastatin 20 mg daily; obtain fasting lipid panel for 11/15 Start ASA 81 mg daily PT/OT/ST ordered Will check A1C, TSH, Mg+, UA. Obtain ECHO; last ECHO was 2018 ; no arrhythmias, normal EF 55-60% with G1DDx and mild mitral calcifications without stenosis; if abnormalities suspected or based on ECHO results; consider Cards consult. EKG in AM and PRN Neuro Consult placed; will await further recs Lingula Nodule: Incidental finding on abdominal/pelvis CT 4 mm ground-glass nodule within the lingula. Per the Fleischner Criteria patient is low risk for follow up. * Low risk patients: no follow-up needed * high risk patients: optional CT at 12 months Follow up with PCP and specialist if warranted Previous tobacco smoker; quit in 2002 Disposition: PCP: Dr. Narayanan Code status: Full Code VTE Prophylaxis: Teds/SCDs for now; continue Heparin or Lovenox based on MRI results I spent a total of 88 minutes coordinating, documenting, and providing care for this patient excluding time spent in the performance of separately billed services. All of the aforementioned completed while collaborating with the assigned attending physician for a full treatment plan. Please see their addendum for further details. History of Present Illness Chief Complaint: TIA symptoms Primary Care Provider: Nirav Narayanan MD Mr. Dillon is a 77 year old male that presented to the [facility] today with TIA symptoms. He awoke at 0300; couldn't get to sleep. He drank some coffee and ate a few donuts. He took some Pepto Bismal and tried to return to sleep but was unable. He called telehealth nurse and while on the line; he had some word finding difficulty and slurred speech - promoting EMS to be called. NIH 0 on arrival to ED and head/neck CTA imaging is not suggestive of an active stroke. ECG on arrival shows a new RBBB compared to his last ECG 02/2022. He has been experiencing ambulatory dysfunction over the past few months and visited with his PCP who performed a brain MRI on 06/26/2022 without contrast that was negative for stroke. No history of known stroke or AMI. No real pertinent medical history outside of lumbar DDD; takes a MVI daily; does not take any anticoagulants. Does report having intermittent left eye twitching with ocular pain. Intermittent blurry and double vision. Has had cataract surgery in August and September 2022 in [place]. Head and neck CTA without significant stenosis, occlusion, or dissection identified within the carotid or vertebral arteries. Abdomen and Pelvis CT revealed incidental finding of a new 4 mm ground-glass nodule within the lingula. Per the Fleischner Criteria patient is low risk for follow up. Pt denies tobacco, alcohol, or recreational drugs, including marijuana. Last chem panel was from 2020 in outpatient records. Confirmed he does not receive care through any other system. Has stated he has been recommended to take certain medications but he is resistant to any medicines. He does report having increased stress at home; him and his of 50 years are on the [employer] board and working on million dollar grants to add to his stress. They also are in the middle of a home renovation that their contractor abruptly left the job on; leaving them to finish it. Most recent stress ECHO was 2017 with results indicating no arrhythmias, normal EF 55-60% with G1DDx and mild mitral calcifications without stenosis. During my evaluation patient has NIH 0 and is able to have full conversation w ithout difficulty. at bedside indicates he has returned to baseline neuro status. Will complete full neuro work up for stroke; suspect patient has had a TIA. No leukocytosis, Transaminitis, elevated Troponin or electrolyte disturbance; will check Mg+. INR 1.1. Denies FUNES, dizziness, chest pain or palpitations, N/V/D/, abdominal pain, bowel, bladder, or appetite changes, no swelling, no cough or fevers, no recent falls or trauma. Patient will be admitted for further evaluation and management. Please see A/P for further details. Allergies Allergy/AdvReac Type Severity Reaction Status Date / Time sulfamethoxazole Allergy Intermediate face Verified 11/14/22 13:13 breaks outin boils trimethoprim Allergy Intermediate face Verified 11/14/22 13:13 breaks outin boils tetracycline Allergy Mild RASH Verified 11/14/22 13:13 Bactrim Allergy Unknown face Verified 03/10/16 15:33 breaks outin boils Penicillins Allergy Unknown as a Verified 11/14/22 13:13 child, Dr Jeni REED with Ancef [id number] adm chocolate flavor AdvReac Intermediate Migraine Unverified 11/14/22 13:13 oxycodone AdvReac Mild n/v Verified 11/14/22 13:13 dairy AdvReac Intermediate migraines Uncoded 11/14/22 13:13 perfumes AdvReac Intermediate migraines Uncoded 11/14/22 13:13 Home Medications Medication Instructions Recorded Confirmed Type multivitamin 1 tab PO QAM 04/14/18 11/14/22 History clindamycin phosphate 1 % topical 1 applic topical DAILY PRN 07/04/19 11/14/22 History gel (Cleocin T) BREAKOUTS fluorouracil 5 % topical cream 1 applic topical HS PRN BREAKOUTS 07/04/19 History (Efudex) ketoconazole 1 % shampoo 1 applic topical UD 02/17/20 11/14/22 History Past Med/Surg History Medical History (Updated 11/14/22 @ 14:45 by BRICE Mejía) Ambulatory dysfunction Chronic back pain History of COVID-19 asymptomatic 02/2020. no current issues History of stomach ulcers Hx of colonic polyps Hx of migraines Mass of lingula of lung Osteoarthritis Stroke-like symptoms Surgical History History of cholecystectomy History of colonoscopy History of esophagogastroduodenoscopy (EGD) History of herniorrhaphy INGUINAL X 2 AND UMBILICAL History of tonsillectomy and adenoidectomy History of tooth extraction Hx of cataract extraction lt. S/P epidural steroid injection Family History Other Family history non-contributory No family history of adverse response to anesthesia Social History Smoking Status: Never smoker Second Hand Exposure: No; Do You Dip or Chew Tobacco: No; Hx Alcohol Use: No Hx Substance Use: No Preferred Language: Gu[place]ian Communication Ability: Effective Glass Vial Filler Required: No Beliefs That Will Affect Care: None Current Living Situation: Spouse Feels Safe at Home: Yes Assistive Devices: Glasses Review of Systems Review of Systems: Neuro: (-) Falls, trauma, slurred speech HEENT: (-) FUNES, dizziness, dysphagia, (-) auditory changes (+) left eye twitching and intermittent blurry/double vision CV: (-) CP, palpitations, swelling Resp: (-) SOB GI: (-) appetite changes, N/V/D, bowel changes : (-) urinary changes Skin: (-) rashes Psych: (-) anxiety, depression Physical Exam Physical Exam: Neuro: AAOx4, PERRLA, no aphagia, memory changes, CNII-XII grossly intact NIH 0 HEENT: head normocephalic, moist mucus membranes CV: S1/S2, (-) M/G/R, (-) edema, cap refill < 3 seconds Resp: Lungs CTA in all watt. On RA GI: Abdomen S/NT/ND, Ax4 bowel sounds, (-) CVA tenderness Musculoskeletal: 5/5 B/L UE strength, 5/5 B/L LE strength. No gait disturbance Skin: (-) rashes , (-) erythema. Psych: euthymic mood Results & Data Results & Data Vital Signs (Past 12 Hours) Vital Signs Temp Pulse Resp BP Pulse Ox O2 Del Method 11/14/22 11:33 72 11/14/22 10:05 36.8 C 81 18 168/106 H 99 Room Air Laboratory Results Short CBC 11/14/22 Range/Units 09:32 WBC 6.24 (4.8-10.8) K/ul Hgb 15.9 (14.0-18.0) g/dl Hct 49.0 (42.0-52.0) % Plt Count 295 (130-400) K/uL BMP 11/14/22 09:32 Sodium 141 Potassium 3.7 Chloride 107 Carbon Dioxide 27 BUN 11 Creatinine 0.90 Glucose 86 Calcium 9.5 Liver Function 11/14/22 Range/Units 09:32 Total Bilirubin 1.1 H (0.2-1.0) mg/dl AST 18 (13-39) U/L ALT 16 (7-52) U/L Alkaline Phosphatase 51 (34-104) U/L Albumin 4.5 (3.4-5.0) gm/dl Diagnostic Findings Head CT 11/14/22 10:08 CT OF THE HEAD WITHOUT CONTRAST CLINICAL HISTORY: neuro deficit, acute stroke suspected COMPARISON STUDY: Head CT July 31, 2021. TECHNIQUE: Helical axial images of the head were obtained without IV contrast. Automated exposure control was utilized for the study. A dose lowering techni que was utilized adhering to the principles of ALARA. FINDINGS: No acute intracranial hemorrhage, midline shift or mass effect is present. White matter hypodensities are unchanged and favor small vessel disease. The ventricular system is unremarkable. The basal cisterns are patent. No extra-axial collections are present. There are no findings to suggest acute dural sinus thrombosis or acute territorial infarct. No significant calvarial abnormalities are present. Visualized portions of the sinuses and mastoid air cells are clear. IMPRESSION: No acute intracranial findings. No change in appearance of the brain. ACT 112: Negative or not required by law. Electronically signed by: Harsh Hdz M.D. 11/14/2022 12:43 PM Head CTA 11/14/22 10:08 HEAD CTA HISTORY: neuro deficit, acute stroke suspected TECHNIQUE: Multiaxial CT images of the head were performed following the intravenous administration of contrast to evaluate the major cerebral vessels. 3D/MIP images were also obtained. Sagittal and coronal reformats were reviewed. A dose lowering technique was utilized adhering to the principles of ALARA. COMPARISON: Head CT 11/14/2022. FINDINGS: There is no mass, hematoma, midline shift, or acute infarct. Visualized intracranial internal carotid arteries, distal vertebral arteries, and basilar artery are widely patent. There is no significant stenosis, occlusion, or aneurysm seen within the bilateral ACAs, MCAs, or underground production foreperson. IMPRESSION: No significant stenosis, occlusion, or aneurysm within the [place]. ACT 112: Negative or not required by law. Electronically signed by: Moose Sharma M.D. 11/14/2022 1:02 PM Neck CTA 11/14/22 10:08 NECK CTA HISTORY: neuro deficit, acute stroke suspected TECHNIQUE: Multiaxial CT images of the neck were performed following the intravenous administration of contrast to evaluate the major cervical vessels. 3D/MIP images were also obtained. Sagittal and coronal reformats were reviewed. All measurements were calculated based on NASCET criteria. A dose lowering technique was utilized adhering to the principles of ALARA. COMPARISON STUDY: None. FINDINGS: The aortic arch and proximal great vessels are widely patent. There is no significant stenosis, occlusion, or dissection identified within the bilateral common carotid, internal carotid, or vertebral arteries. 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 There is mild to moderate calcified plaque within the carotid bifurcations. IMPRESSION: No significant stenosis, occlusion, or dissection identified within the carotid or vertebral arteries. ACT 112: Negative or not required by law. Electronically signed by: Moose Sharma M.D. 11/14/2022 12:27 PM Abdomen/Pelvis CT 11/14/22 11:[address] WITHOUT CONTRAST CT DOSE: 2235.30 mGy.cm HISTORY: sepsis TECHNIQUE: Multiaxial CT images of the abdomen and pelvis were performed without contrast. A dose lowering technique was utilized adhering to the principles of ALARA. COMPARISON STUDY: Chest CTA 06/14/2017. FINDINGS: Subcentimeter subpleural nodules within the right lower lobe remain stable and are therefore considered to be benign. There are few bibasilar linear densities suggestive of scarring or subsegmental atelectasis. There is a new 4 mm groundglass nodule within the lingula on image 22. No pneumoperitoneum. No pneumatosis. No acute fractures identified. Scattered hypodense lesions within the liver are again noted. These favor cysts. Dominant lesion within the left hepatic lobe measures 2.2 cm. Prior cholecystectomy. The unenhanced spleen, adrenal glands, and pancreas are unremarkable. No retroperitoneal lymphadenopathy. There is an ectatic abdominal aorta measuring up to 2.7 cm in diameter. No pelvic lymphadenopathy or pelvic free fluid. The bladder is within normal limits. The prostate gland is mildly enlarged. There are few punctate bilateral renal calculi. No ureteral calculi. No hydronephrosis. Bilateral peripelvic renal cysts are noted. Bilateral renal hypodense lesions with the largest on the right measuring 7.6 cm. These favor cysts but are incompletely characterized on this noncontrast study. No bowel wall thickening or obstruction. Normal appendix. Mild bilateral perinephric edema. This is likely chronic. IMPRESSION: 1. No bowel wall thickening or obstruction. 2. Bilateral nephrolithiasis. No ureteral stones. No hydronephrosis. 3. A new 4 mm groundglass nodule within the lingula. Follow-up recommended below. 4. Additional findings as described above. Please refer to below summary of Fleischner criteria recommendations for follow- up of incidental CT nodules (Efrain Goldsmith, Guidelines for management of small pulmonary nodules detected on CT scans: A statement from the Fleischner Society, Radiology 237: [phone].) SOLID NODULES Solitary nodule size: <6 mm * Low risk patients: no follow-up needed * high risk patients: optional CT at 12 months Solitary nodule size: 6-8 mm * Low risk patients: follow-up at 6-12 months, then consider further follow-up at 18-24 months * high risk patients: initial follow-up CT at 6-12 months and then at 18-24 months if no change Solitary nodule size: >8 mm * either low or high risk patients - consider follow-up CT at 3 months, and/or CT-PET, and/or biopsy Multiple nodules size: <6 mm * Low risk patients: no routine follow-up * high risk patients: optional CT at 12 months Multiple nodules size: 6-8 mm * Low risk patients: follow-up at 3-6 months, then consider further follow-up at 18-24 months * high risk patients: follow-up at 3-6 months, then at 18-24 months if no change Multiple nodules size: >8 mm * Low risk patients: follow-up at 3-6 months, then consider further follow-up at 18-24 months * high risk patients: follow-up at 3-6 months, then at 18-24 months if no change Note: newly detected indeterminate nodule in persons 35 years of age or older. * Low risk patients: minimal or absent history of smoking and/or other known risk factors * high risk patients: history of smoking or of other known risk factors (e.g. first degree relative with lung cancer, or exposure to asbestos, radon, uranium) * if a nodule up to 8 mm is partly solid or is ground glass further follow-up is required after 24 months to exclude possible slow growing adenocarcinoma (THELMA) SUBSOLID NODULES Solitary pure ground-glass nodule * nodule size <6 mm - no CT follow-up required * nodule size >=6 mm - follow-up CT at 6-12 months, then every 2 years until 5 years Solitary part-solid nodule * nodule size <6 mm - no CT follow-up required * nodule size >=6 mm - follow-up CT at 3-6 months. If unchanged, and solid component remains <6 mm, then annual follow-up for 5 years Multiple subsolid nodules * nodule size <6 mm - follow-up CT at 3-6 months, consider further follow-up at 2 and 4 years if stable * nodule size >=6 mm - follow-up CT at 3-6 months, subsequent management based on the most suspicious nodule(s) ACT 112: Negative or not required by law. Electronically signed by: Moose Sharma M.D. 11/14/2022 12:38 PM Code Status & VTE Plan Code Status Full Code in the event of cardiac or respiratory arrest VTE Prophylaxis Plan VTE Prophylaxis will be ordered: Yes Supervising Physician Co-Signing Physician Notes Attending addendum: The patient was seen and examined in emergency room in presence of the She has been feeling much better in the hospital Admitted strokelike symptoms with slurred speech and has not been feeling well for a few days On examination Lying in bed comfortably Hemodynamically stable with blood pressure on the upper side at 168/106 during my examination Chest-clear to auscultate bilateral Heart-S1-S2, 1/6 to 2/6 ESM over precordium Abdomen-benign Extremities-no edema Her admission labs, EKG and imaging studies reviewed Strokelike symptoms-resolved in the emergency room Complains to have left supraorbital pain without any other associated symptoms Will have MRI with and without contrast Neurology consult Agree with assessment plan as outlined above by Lyndsey Lundberg
[2022-11-14] MEDS ORDERED: ALUMINUM/MAGNESIUM SUSP 30 ML UDC PO PRN (13:21)
[2022-11-14] MEDS ORDERED: MAGNESIUM HYDROXIDE SUSP 30 ML UDC PO PRN (13:21)
[2022-11-14] MEDS ORDERED: ACETAMINOPHEN 325 MG TAB PO PRN (13:21)
[2022-11-14] MEDS ORDERED: ONDANSETRON INJ 2 MG/ML 2 ML VIAL IV PRN (13:21)
[2022-11-14] MEDS ORDERED: POLYETHYLENE (MIRALAX) 17 GM PACK PO PRN (13:21)
[2022-11-14 15:06] LABS: Estimated Average Glucose 117 mg/dl; Hemoglobin A1C 5.7 % (4.5-5.6)
[2022-11-14] MEDS: ASPIRIN 81 MG ECTAB PO SCH (15:11)
[2022-11-14] MEDS ORDERED: GADOBUTROL 65ML VIAL IV ONE (18:48)
[2022-11-14 20:30] LABS: Appearance Urine Clear (Clear); Bilirubin Urine Negative (Negative); Blood Urine Negative (Negative); Color Urine Yellow; Glucose Urine UA Negative (Negative); Ketones Urine 1+ (Negative); Leukocyte Esterase Urine Negative (Negative); Nitrite Urine Negative (Negative); Protein Urine Negative (Negative); Specific Gravity Urine 1.019 (1.000-1.030); Urobilinogen Urine Negative (Negative)
[2022-11-14] MEDS ORDERED: SIMVASTATIN 20 MG TAB PO SCH (21:00)
[2022-11-15 07:41] LABS: Hematocrit (blood only) 45.7 % (42.0-52.0); Hemoglobin 15.1 g/dl (14.0-18.0); Mean Corpuscular Hemoglobin 30.9 pg (25.0-34.0); Mean Corpuscular Volume 93.5 fL (80.0-100.0); Mean Platelet Volume 9.7 fL (9.4-12.4); Platelet Count 285 K/uL (130-400); RDW Coefficient of Variation 13.2 % (11.5-14.5); RDW Standard Deviation 45.4 fL (36.4-46.3); Red Blood Count 4.89 M/uL (4.70-6.10); White Blood Count 5.93 K/ul (4.8-10.8)
[2022-11-15 08:06] LABS: Albumin Globulin Ratio 1.9 (0.9-2); Albumin Level 3.8 gm/dl (3.4-5.0); BUN Creatinine Ratio 10.3 (10-20); Bilirubin,Total 1.1 mg/dl (0.2-1.0); Calcium 8.8 mg/dl (8.6-10.3); Chol HDL Ratio 2.5 (0-5); Creatinine Clr Calc Pharmacy 66.6 ml/min; Est GFR (African American) 95.1 ml/min; Est GFR (Non-African American) 82.1 ml/min; Magnesium 2.1 mg/dl (1.7-2.4); Total Protein 5.8 gm/dl (6.0-8.3)
--- NOTE | 2022-11-15 08:28 | Neurology Consultation ---
Date of Consultation November 15, 2022 Assessment & Plan (1) TIA (transient ischemic attack): Patient presents with transient aphasia concerning for possible TIA. Given the brevity of the episode a migraine variant is also possible but prudent to treat as TIA. Vessel studies and echo do not show obvious source, would suggest further cardiac monitoring for occult afib. In the meantime agree with aspirin and statin for secondary stroke prevention. -- Agree with 81mg aspirin daily -- Lipitor 40mg daily (simvastatin is not high intensity) -- Goal BP normotension -- Neurology follow-up in 6-8 weeks -- No further neurologic workup recommended, please contact us with any further questions Telehealth Consultation Telehealth Information Telehealth Information: I performed this visit using a real-time telehealth connection between my location and the patients location ([facility]). After connecting through interactive tele-video, patient was identified by name and date of and/or wristband check.Patient (or authorized healthcare rental sales representative) was informed that this was a telemedicine visit and it was being conducted confidentially over secure lines. My office door was closed and no one else was present in the room with me.Patient (or authorized healthcare rental sales representative) provided consent to proceed with the visit, expressed an understanding of privacy and security of the telemedicine visit, and gave permission to have a hospital rental sales representative in the room in order to assist with the visit and to conduct portions of the visit, as needed. I informed the patient (or authorized healthcare rental sales representative) that I reviewed their record and presented the opportunity for them to ask any questions regarding the visit today. The patient agreed to participate. History of Present Illness Reason for Consultation: Stroke like symptoms Requesting Physician: Dr. Caruso Attending Physician: Tobin Caruso MD History of Present Illness Car Dillon is a 77 yo M presenting with a 8-10 minute episode of expressive aphasia. He recalls the episode clearly and notes that he was unable to think of the words he wanted to say. There was no associated numbness, weakness, vision changes or headache though he reports a L frontal headache afterwards. He denies any recurrent symptoms since admission. No prior history of similar episodes though does get headaches (always L frontal) when eating chocolate or dairy that began over the last year. Allergies Allergy/AdvReac Type Severity Reaction Status Date / Time sulfamethoxazole Allergy Intermediate face Verified 11/14/22 13:13 breaks outin boils trimethoprim Allergy Intermediate face Verified 11/14/22 13:13 breaks outin boils tetracycline Allergy Mild RASH Verified 11/14/22 13:13 Bactrim Allergy Unknown face Verified 03/10/16 15:33 breaks outin boils Penicillins Allergy Unknown as a Verified 11/14/22 13:13 child, Dr Jeni REED with [facility] [id number] adm chocolate flavor AdvReac Intermediate Migraine Unverified 11/14/22 13:13 oxycodone AdvReac Mild n/v Verified 11/14/22 13:13 dairy AdvReac Intermediate migraines Uncoded 11/14/22 13:13 perfumes AdvReac Intermediate migraines Uncoded 11/14/22 13:13 Home Medications Medication Instructions Recorded Confirmed Type multivitamin 1 tab PO QAM 04/14/18 11/14/22 History clindamycin phosphate 1 % topical 1 applic topical DAILY PRN 07/04/19 11/14/22 History gel (Cleocin T) BREAKOUTS fluorouracil 5 % topical cream 1 applic topical HS PRN BREAKOUTS 07/04/19 11/14/22 History (Efudex) ketoconazole 1 % shampoo 1 applic topical UD 02/17/20 11/14/22 History Patient History Medical History (Updated 11/14/22 @ 14:45 by BRICE Mejía) Ambulatory dysfunction Chronic back pain History of COVID-19 asymptomatic 02/2020. no current issues History of stomach ulcers Hx of colonic polyps Hx of migraines Mass of lingula of lung Osteoarthritis Stroke-like symptoms Surgical History History of cholecystectomy History of colonoscopy History of esophagogastroduodenoscopy (EGD) History of herniorrhaphy INGUINAL X 2 AND UMBILICAL History of tonsillectomy and adenoidectomy History of tooth extraction Hx of cataract extraction lt. S/P epidural steroid injection Family History Other Family history non-contributory No family history of adverse response to anesthesia Social History Smoking Status: Former smoker Second Hand Exposure: No; Do You Dip or Chew Tobacco: No; Tobacco Cessation Education Requested by Patient: No Hx Alcohol Use: No Hx Substance Use: No Preferred Language: Georgian Communication Ability: Effective Marbleizing Machine Tender Required: No Beliefs That Will Affect Care: None Current Living Situation: Spouse Other Information That Helps Us Care for You: No Feels Safe at Home: Yes Safety Concerns: Feels Safe At This Time Assistive Devices: Glasses Review of Systems +word finding difficulty, headache Physical Exam Neurological Examination: Mental Status: Awake and alert. Oriented to person, place, and time. Fluent. Comprehension intact. Affect appropriate. Cranial Nerves: II: Reads NIHSS cards, pupils 3/3 to 2/2 III/IV/: Versions intact without nystagmus, no gaze preference. V: Facial sensation symmetric to light touch VII: Facial expression symmetric VIII: Hearing intact to voice IX/X: Palate elevates symmetrically XI: Shoulder shrug symmetric XII: Tongue midline Motor: Strength was symmetric and antigravity throughout. Pronator drift was absent. There were no abnormal movements. Coordination: Finger to nose was intact. Reflexes: Unable to assess over telemedicine Results & Data Vital Signs (Past 12 Hours) Vital Signs Temp Pulse Pulse Resp BP Pulse Ox O2 Del Method 11/15/22 07:23 36.5 C 68 18 128/79 93 Room Air 11/15/22 07:14 71 11/15/22 03:06 36.6 C 64 18 107/56 L 94 Room Air 11/14/22 22:01 70 11/14/22 23:11 36.8 C 79 16 108/69 94 Room Air Laboratory Results Abnormal lab results 11/14/22 11/14/22 11/14/22 Range/Units 09:32 09:32 09:32 RDW Std Deviation 46.7 H (36.4-46.3) fL Chloride (98-107) mmol/L Hemoglobin A1c 5.7 H (4.5-5.6) % Total Bilirubin 1.1 H (0.2-1.0) mg/dl Total Protein (6.0-8.3) gm/dl Globulin 2.3 L (2.5-4.0) gm/dl Urine pH (4.5-7.5) Urine Ketones (Negative) 11/14/22 11/15/22 Range/Units 19:55 07:15 RDW Std Deviation (36.4-46.3) fL Chloride 109 H (98-107) mmol/L Hemoglobin A1c (4.5-5.6) % Total Bilirubin 1.1 H (0.2-1.0) mg/dl Total Protein 5.8 L (6.0-8.3) gm/dl Globulin 2.0 L (2.5-4.0) gm/dl Urine pH 8.0 H (4.5-7.5) Urine Ketones 1+ H (Negative) Diagnostic Findings MRI brain - Unremarkable
--- NOTE | 2022-11-15 08:30 | Magnetic Resonance Report ---
MRI OF THE BRAIN WITHOUT AND WITH IV CONTRAST CLINICAL HISTORY: stroke like symptoms/left eye pain COMPARISON STUDY: Head CT and CTA of the head November 14, 2022. TECHNIQUE: Utilizing a 1.5 Helen magnet and dedicated coil, multiplanar, multiecho imaging of the br ain was performed pre and postcontrast administration. IV administration of Gadavist contrast was un eventful. FINDINGS: There are no foci of restricted diffusion to suggest acute infarct. No acute intracranial h emorrhage, midline shift or mass effect is present. Ventricular system is unremarkable for age. Basal cisterns are patent. There are no extra-axial collections. No intracranial mass or pathologic enhanc ement is present. Flow-voids for the major intracranial vessels are present. Calvarial signal is norm al. There is no evidence for sinusitis. No significant mastoid effusion. Moderate to extensive white matter T2 hyperintense foci are present. IMPRESSION: 1. No acute intracranial findings. 2. No intracranial mass or pathologic enhancement. 3. Moderate to extensive white matter T2 hyperintense foci suggestive of small vessel disease. ACT 112: Negative or not required by law. Electronically signed by: Harsh Hdz M.D. 11/15/2022 8:27 AM
[2022-11-15] MEDS: ASPIRIN 81 MG ECTAB PO SCH (09:56)
--- NOTE | 2022-11-15 12:43 | Electrocardiogram Report ---
Test Reason : Blood Pressure : / mmHG Vent. 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
--- NOTE | 2022-11-15 14:46 | Discharge Summary ---
Date of Service November 15, 2022 Admission HPI Per Admitting Provider Mr. Dillon is a 77 year old male that presented to the [facility] today with TIA symptoms. He awoke at 0300; couldn't get to sleep. He drank some coffee and ate a few donuts. He took some Pepto Bismal and tried to return to sleep but was unable. He called telehealth nurse and while on the line; he had some word finding difficulty and slurred speech - promoting EMS to be called. NIH 0 on arrival to ED and head/neck CTA imaging is not suggestive of an active stroke. ECG on arrival shows a new RBBB compared to his last ECG 02/2022. He has been experiencing ambulatory dysfunction over the past few months and visited with his PCP who performed a brain MRI on 06/26/2022 without contrast that was negative for stroke. No history of known stroke or AMI. No real pertinent medical history outside of lumbar DDD; takes a MVI daily; does not take any anticoagulants. Does report having intermittent left eye twitching with ocular pain. Intermittent blurry and double vision. Has had cataract surgery in August and September 2022 in [place]. Head and neck CTA without significant stenosis, occlusion, or dissection identified within the carotid or vertebral arteries. Abdomen and Pelvis CT revealed incidental finding of a new 4 mm ground-glass nodule within the lingula. Per the Fleischner Criteria patient is low risk for follow up. Pt denies tobacco, alcohol, or recreational drugs, including marijuana. Last em panel was from 2020 in outpatient records. Confirmed he does not receive care through any other system. Has stated he has been recommended to take certain medications but he is resistant to any medicines. He does report having increased stress at home; him and his of 50 years are on the [employer] board and working on million dollar grants to add to his stress. They also are in the middle of a home renovation that their contractor abruptly left the job on; leaving them to finish it. Most recent stress ECHO was 2017 with results indicating no arrhythmias, normal EF 55-60% with G1DDx and mild mitral calcifications without stenosis. During my evaluation patient has NIH 0 and is able to have full conversation without difficulty. at bedside indicates he has returned to baseline neuro status. Will complete full neuro work up for stroke; suspect patient has had a TIA. No leukocytosis, Transaminitis, elevated Troponin or electrolyte disturbance; will check Mg+. INR 1.1. Denies FUNES, dizziness, chest pain or palpitations, N/V/D/, abdominal pain, bowel, bladder, or appetite changes, no swelling, no cough or fevers, no recent falls or trauma. Patient will be admitted for further evaluation and management. Please see A/P for further details. Admission Exam Per Admitting Provider Neuro: AAOx4, PERRLA, no aphagia, memory changes, CNII-XII grossly intact NIH 0 HEENT: head normocephalic, moist mucus membranes CV: S1/S2, (-) M/G/R, (-) edema, cap refill < 3 seconds Resp: Lungs CTA in all watt. On RA GI: Abdomen S/NT/ND, Ax4 bowel sounds, (-) CVA tenderness Musculoskeletal: 5/5 B/L UE strength, 5/5 B/L LE strength. No gait disturbance Skin: (-) rashes , (-) erythema. Psych: euthymic mood Principal Diagnosis Transient ischemic attack Discharge Exam Constitutional: WD/WN, vitals as above, NAD, sitting up in bed, pleasant, conversing easily Respiratory: bilateral vesicular breath sounds Cardiovascular: RRR, no murmur, no edema Vessels: no JVD or carotid bruit Chest: normal inspection of chest Abdomen: normal bowel sounds, soft, nontender, no hepatosplenomegaly Musculoskeletal: no cyanosis or clubbing, extremities motor strength 5/5 Skin: no rashes, warm and dry normal turgor Neurologic: PERRL, EOMI, accommodation nl, no face palsy, no dysarthria CN's II- XI intact bilaterally and moves all extremities Psychiatric: A+Ox3, euthymic affect Discharge Data Allergies Allergy/AdvReac Type Severity Reaction Status Date / Time sulfamethoxazole Allergy Intermediate face Verified 11/14/22 13:13 breaks outin boils trimethoprim Allergy Intermediate face Verified 11/14/22 13:13 breaks outin boils tetracycline Allergy Mild RASH Verified 11/14/22 13:13 Bactrim Allergy Unknown face Verified 03/10/16 15:33 breaks outin boils Penicillins Allergy Unknown as a Verified 11/14/22 13:13 child, Dr Jeni REED with [facility] [id number] adm lactose Allergy Verified 11/15/22 11:39 milk Allergy Verified 11/15/22 11:39 Milk Containing Products Allergy Verified 11/15/22 10:11 (Dairy) chocolate flavor AdvReac Intermediate Migraine Unverified 11/14/22 13:13 oxycodone AdvReac Mild n/v Verified 11/14/22 13:13 dairy AdvReac Intermediate migraines Uncoded 11/14/22 13:13 perfumes AdvReac Intermediate migraines Uncoded 11/14/22 13:13 Consultations 11/14/22 13:21 Consult Neurology Routine 11/14/22 13:26 ED Decision to Admit Stat Ordered Studies 11/14/22 10:08 CT angio head w con Stat CT angio neck with con Stat CT head/brain wo con Stat 11/14/22 11:28 CT abd pelvis wo con Stat 11/14/22 14:04 MRI Brain [MR brain wo/w con] Routine Hospital Course (1) Stroke-like symptoms: (2) Ambulatory dysfunction: Plan 77 year old male presents today with TIA symptoms. He awoke at 0300; couldn't get to sleep. He drank some coffee and ate a few donuts. He took some Pepto Bismol and tried to return to sleep but was unable. He called telehealth nurse and while on the line; he had some word finding difficulty and slurred speech - promoting EMS to be called. NIH 0 on arrival to ED and head/neck CTA imaging is not suggestive of an active stroke. ECG on arrival shows a new RBBB compared to his last ECG 02/2022. He has been experiencing ambulatory dysfunction over the past few months and visited with his PCP who performed a brain MRI on 06/26/2022 without contrast that was negative for stroke. No history of known stroke or AMI. No real pertinent medical history outside of lumbar DDD; takes a MVI daily. No neuro stroke consult performed in ER. Does not meet TNK criteria. . Has had cataract surgery in August and September 2022 in [place]. Most recent stress ECHO was 2017 with results indicating no arrhythmias, normal EF 55-60% with G1DDx and mild mitral calcifications without stenosis. No ectopy or arrhythmias on monitor. Does not appear toxic and no leukocytosis. Patient was admitted to telemetry floor. Neurology was consulted. Patient was started on aspirin and Lipitor. Telemetry monitoring was done. Echocardiogram was done which showed EF of 60 to 65%. Aortic root mildly dilated at 3.9 cm. No significant changes compared to his report from 2018. Neurology recommended continuing aspirin and Lipitor and mushroom cultivator for further evaluation of occult A-fib. Patient was afebrile, vitally stable at discharge. No focal neurological deficit at discharge. Patient to follow-up with his PCP as outpatient. Please note the above document was generated using voice recognition software. It may contain grammatical, syntax or spelling errors. Any formal questions or concerns about the content, text or information contained within the body of this dictation should be directly addressed to the provider for clarification Total Time Total Time Spent Total Time Spent (In Minutes): 45 Total Time Includes: Examination of the Patient, Discharge Planning, Medication Reconciliation, Communication With Other Providers and Other Discharge Plan Discharge Items Patient Disposition: Home - Self-Care Reason For Visit: STROKE LIKE SYMTPOMS Discharge Diagnosis: Transient ischemic attack. Activity: Resume your previous activity Non-emergency contact: Primary Care Provider Call non-emergency contact if: you have any medication questions and your symptoms worsen Follow-up/Referrals: Nirav Narayanan MD [Primary Care Provider] - (Date & Time 11/20/2022 3:20 PM Provider BRICE Silva Department [facility] ) Diet: Regular Addtl Attending Provider Instructions: You were admitted to the hospital due to slurred speech. The likely cause for it is possible transient ischemic attack. You were evaluated by neurologist Dr. Oneill who recommended you to be started on baby aspirin 81 mg and Lipitor 40 mg daily. An appointment will be set up with your primary care doctor for follow-up. You will need mushroom cultivator as outpatient to look for occult atrial fibrillation. You had CT abdomen and pelvis done during the hospitalization. You were found to have a 4 mm grassland nodule within left lung (Lingula) which is new compared to the scan done in 2018. You will need follow-up CT scan chest in 1 years time to follow-up on the nodule. Pending Studies at Discharge: No Stand-Alone Forms: My SocialStay, Smoking Cessation Medications and DC Order Prescriptions: New aspirin 81 mg Tablet,Delayed Release (Dr/Ec) 81 mg PO DAILY Qty: 30 0RF atorvastatin [Lipitor] 40 mg tablet 40 mg PO DAILY Qty: 30 0RF Continued multivitamin Tablet 1 tab PO QAM ketoconazole 1 % Shampoo 1 applic TOPICAL UD fluorouracil [Efudex] 5 % cream 1 applic TOPICAL HS PRN (Reason: BREAKOUTS) clindamycin phosphate [Cleocin T] 1 % gel 1 applic TOPICAL DAILY PRN (Reason: BREAKOUTS) Discharge Orders: Discharge Order (Routine); Ordered 11/15/22 Ordered By: Dorian Padilla Admission Data Admit Date/Time: 11/14/22 13:21 Attending Provider: Dorian Padilla Admit Provider: Martín Lundberg Primary Care Provider: Nirav Narayanan Other Providers: Martín Lundberg ; Dorian Padilla ; Tobin Caruso Other Interventions: Discharge Summary Assessment (RN) Last Done: 11/15/22 11:47
== END 2022-11-15 13:15 | disposition home or self-care (01) | DRG 69 ==
LOC: ED 09:58 → SUATTDRO 13:21 → 2W 13:21